=== PATIENT | female | born 1960 | race Caucasian/White ===

== ENCOUNTER → 2016-06-30 | Outpatient (CLI) | payer BC ==
--- NOTE | 2016-07-03 09:15 | MM ---
Reason for exam: screening (asymptomatic). Last mammogram was performed 1 year ago. History: Patient is postmenopausal and is nulliparous. Physical Findings: A clinical breast exam by your physician is recommended on an annual basis and results should be correlated with mammographic findings. MG Screening Mammo w CAD Bilateral CC and MLO view(s) were taken. Prior study comparison: June 16, 2015, bilateral MG screening mammo w CAD. October 15, 2013, bilateral digital screening mammo w/CAD. There are scattered fibroglandular densities. Benign calcifications. Right retroareolar nodular density. This finding is changed when compared with previous exams. ASSESSMENT: Incomplete: need additional imaging evaluation, BI-RAD 0 RECOMMENDATION: Special view mammogram and ultrasound of the right breast. [facility] will attempt to contact patient to return for supplemental views and ultrasound.
== END | disposition home or self-care (01) ==
LOC: RADMAMWWP 15:21
PROVIDERS: ATTEND Obstetrics & Gynecology
DX: Z12.31 Encounter for screening mammogram for malignant neoplasm of breast (principal); R92.2 Inconclusive mammogram

== ENCOUNTER → 2016-07-14 | Outpatient (CLI) | payer BC ==
--- NOTE | 2016-07-17 07:25 | MM ---
Reason for exam: additional evaluation requested from abnormal screening. Last mammogram was performed less than 1 month ago. History: Patient is postmenopausal and is nulliparous. Physical Findings: Nurse did not find any significant physical abnormalities on exam. MG Work Up Mamm w CAD RT LM, spot compression CC, and spot compression MLO view(s) were taken of the right breast. Prior study comparison: June 30, 2016, bilateral MG screening mammo w CAD. June 16, 2015, bilateral MG screening mammo w CAD. Density improves. Ultrasound is recommended. These results were verbally communicated with the patient and result sheet given to the patient on 07/14/16. ASSESSMENT: Incomplete: need additional imaging evaluation, BI-RAD 0 RECOMMENDATION: Ultrasound of the right breast.
--- NOTE | 2016-07-17 07:25 | USB ---
Reason for exam: additional evaluation requested from abnormal screening. History: Patient is postmenopausal and is nulliparous. US Breast Workup Limited RT Right breast ultrasound demonstrates ducts visible at posterior nipple. These results were verbally communicated with the patient and result sheet given to the patient on 07/14/16. ASSESSMENT: Benign, BI-RAD 2 RECOMMENDATION: Return to routine screening mammogram schedule for both breasts.
== END | disposition home or self-care (01) ==
LOC: RADMAMWWP 15:00
PROVIDERS: ATTEND Obstetrics & Gynecology
DX: R92.8 Other abnormal and inconclusive findings on diagnostic imaging of breast (principal)
CPT/HCPCS: 76642; G0206

== ENCOUNTER → 2016-09-18 | Outpatient (CLI) | payer BC ==
[2016-09-18 09:22] LABS: ALT 31 U/L (9-52); AST 16 U/L (14-36); Alkaline Phosphatase 105 U/L (38-126); Anion Gap 9 mmol/L; Blood Urea Nitrogen 16 mg/dL (7-17); Calcium 9.2 mg/dL (8.4-10.2); Carbon Dioxide 28 mmol/L (22-30); Chloride 103 mmol/L (98-107); Cholesterol 180 mg/dL (<200); Glucose 189 mg/dL (74-99); HDL Cholesterol 74 mg/dL (40-60); Non-African American GFR(MDRD) >60 (>60 ml/min/1.73 sqM); Potassium 4.7 mmol/L (3.5-5.1); Sodium 140 mmol/L (137-145); Total Bilirubin 0.7 mg/dL (0.2-1.3); Total Protein 6.5 g/dL (6.3-8.2); Triglycerides 66 mg/dL (<150)
== END | disposition home or self-care (01) ==
LOC: LABWHC1 08:23
PROVIDERS: ATTEND Internal Medicine Endocrinology, Diabetes & Metabolism
DX: E10.65 Type 1 diabetes mellitus with hyperglycemia (principal); E55.9 Vitamin D deficiency, unspecified
CPT/HCPCS: 36415; 80053; 80061; 82043; 82306; 84443

== ENCOUNTER 2017-04-06 07:50 | Emergency (ER) | payer BC, OTHER ==
[2017-04-06 07:57] VITALS: TEMP 97.7
[2017-04-06] MEDS ORDERED: SODIUM CHLORIDE 0.9% 1,000 ML IV STA (08:27)
--- NOTE | 2017-04-06 08:34 | ED ---
General Adult HPI - General Chief complaint: Fall Stated complaint: fall ihs Time Seen by Provider: 04/06/17 08:14 Source: patient, RN notes reviewed Mode of arrival: wheelchair Limitations: no limitations - History of Present Illness Initial comments: Patient is a 56-year-old female who presents emergency room today with a chief complaint of falling at work approximately 2 hours ago. She does admit that she 's had falls like this over the last 6 months. She states this is approximately the sixth all. She states she does not get dizzy or lightheaded. She states she was just walking and she fell forward. She remembers the fall. Members getting up. Patient does admit to headache to the back of her head. She states she does not believe she hit her head. She does admit that with these falls that she's had off-and-on over the last 6 months she has experienced headaches at times. Patient also admits that yesterday at work she felt like she lost time. She states that she was working and before she knew it was much later in the day that when she realized. Patient denies any other complaints or symptoms. Patient denies any recent fever, chills, shortness of breath, chest pain, back pain, abdominal pain, nausea or vomiting, numbness or tingling, dysuria or hematuria, constipation or diarrhea, visual changes, or any other complaints. - Related Data Home Medications Medication Instructions Recorded Confirmed Cholecalciferol [Vitamin D3] 1,000 unit PO MO 04/06/17 04/06/17 INSULIN LISPRO (For Pump) [humaLOG See Protocol SQ-PUMP CONTINUOUS 04/06/17 (For Pump)] Allergies Allergy/AdvReac Type Severity Reaction Status Date / Time amoxicillin Allergy Rash/Hives Verified 04/06/17 08:29 Sulfa (Sulfonamide Allergy Rash/Hives Verified 04/06/17 08:29 Antibiotics) Review of Systems ROS Statement: Those systems with pertinent positive or pertinent negative responses have been documented in the HPI. ROS Other: All systems not noted in ROS Statement are negative. Past Medical History Past Medical History: Diabetes Mellitus History of Any Multi-Drug Resistant Organisms: MRSA Date of last positivie culture/infection: unknown MDRO Source:: leg thigh Past Surgical History: Appendectomy Past Psychological History: Depression Smoking Status: Never smoker Past Alcohol Use History: Occasional Past Drug Use History: None Reported General Exam - General Exam Comments Initial Comments: General: The patient is awake and alert, in no distress, and does not appear acutely ill. Eye: Pupils are equal, round and reactive to light, extra-ocular movements are intact. No nystagmus. There is normal conjunctiva bilaterally. No signs of icterus. Ears, nose, mouth and throat: There are moist mucous membranes and no oral lesions. Neck: The neck is supple, there is no tenderness or JVD. Cardiovascular: There is a regular rate and rhythm. No murmur, rub or gallop is appreciated. Respiratory: Lungs are clear to auscultation, respirations are non-labored, breath sounds are equal. No wheezes, stridor, rales, or rhonchi. Gastrointestinal: Soft, non-distended, non-tender abdomen without masses or organomegaly noted. There is no rebound or guarding present. No CVA tenderness. Bowel sounds are unremarkable. Musculoskeletal: Normal ROM, no tenderness. Strength 5/5. Sensation intact. Pulses equal bilaterally 2+. Neurological: A&O x 3. CN II-XII intact, There are no obvious motor or sensory deficits. Coordination appears grossly intact. Speech is normal. Skin: Skin is warm and dry and no rashes or lesions are noted. Psychiatric: Cooperative, appropriate mood & affect, normal judgment. Limitations: no limitations Course Vital Signs 04/06/17 04/06/17 04/06/17 07:52 08:46 08:50 Temperature 97.7 F Pulse Rate 62 58 L Pulse Rate [ 50 L Sitting] Pulse Rate [ 56 L Standing] Pulse Rate [ 57 L Supine] Respiratory 16 18 Rate Blood Pressure 172/68 158/63 Blood Pressure 165/68 [Sitting] Blood Pressure 153/63 [Standing] Blood Pressure 140/64 [Supine] O2 Sat by Pulse 99 Oximetry 04/06/17 09:55 Temperature Pulse Rate 48 L Pulse Rate [ Sitting] Pulse Rate [ Standing] Pulse Rate [ Supine] Respiratory 18 Rate Blood Pressure 126/56 Blood Pressure [Sitting] Blood Pressure [Standing] Blood Pressure [Supine] O2 Sat by Pulse Oximetry Medical Decision Making - Medical Decision Making Patient labs been reviewed are unremarkable. Patient isn't medicated emergency room. Her EKG shows sinus bradycardia. Case was discussed and seen by attending physician who did discuss case with patient's PCP. He recommends the patient may be discharged home to follow-up with him for Holter monitor. Patient is aware this plan states understanding and is in agreement. - Lab Data Result diagrams: 04/06/17 08:40 04/06/17 08:40 Lab Results 04/06/17 04/06/17 04/06/17 Range/Units 08:34 08:40 08:40 WBC 7.2 (3.8-10.6) k/uL RBC 4.40 (3.80-5.40) m/uL Hgb 12.8 (11.4-16.0) gm/dL Hct 38.8 (34.0-46.0) % MCV 88.2 (80.0-100.0) fL MCH 29.1 (25.0-35.0) pg MCHC 33.0 (31.0-37.0) g/dL RDW 14.0 (11.5-15.5) % Plt Count 185 (150-450) k/uL Neutrophils % 76 % Lymphocytes % 17 % Monocytes % 5 % Eosinophils % 1 % Basophils % 1 % Neutrophils # 5.5 (1.3-7.7) k/uL Lymphocytes # 1.2 (1.0-4.8) k/uL Monocytes # 0.3 (0-1.0) k/uL Eosinophils # 0.0 (0-0.7) k/uL Basophils # 0.0 (0-0.2) k/uL PT (9.0-12.0) sec INR (<1.2) APTT (22.0-30.0) sec Sodium (137-145) mmol/L Potassium (3.5-5.1) mmol/L Chloride (98-107) mmol/L Carbon Dioxide (22-30) mmol/L Anion Gap mmol/L BUN (7-17) mg/dL Creatinine (0.52-1.04) mg/dL Est GFR (MDRD) Af Amer (>60 ml/min/1.73 sqM) Est GFR (MDRD) Non-Af (>60 ml/min/1.73 sqM) Glucose (74-99) mg/dL POC Glucose (mg/dL) 198 H (75-99) mg/dL POC Glu Drafter Marine ID Kegler, Gina Calcium (8.4-10.2) mg/dL Total Bilirubin (0.2-1.3) mg/dL AST (14-36) U/L ALT (9-52) U/L Alkaline Phosphatase (38-126) U/L Total Creatine Kinase 73 (30-135) U/L CK-MB (CK-2) 1.0 (0.0-2.4) ng/mL CK-MB (CK-2) Rel Index 1.4 Troponin I <0.012 (0.000-0.034) ng/mL Total Protein (6.3-8.2) g/dL Albumin (3.5-5.0) g/dL Urine Color Urine Appearance (Clear) Urine pH (5.0-8.0) Ur Specific Pickrell (1.001-1.035) Urine Protein (Negative) Urine Glucose (UA) (Negative) Urine Blood (Negative) Urine Nitrite (Negative) Urine Bilirubin (Negative) Urine Urobilinogen (<2.0) mg/dL Ur Leukocyte Esterase (Negative) Urine WBC (0-5) /hpf Ur Squamous Epith Cells (0-4) /hpf Urine Bacteria (None) /hpf Urine Mucus (None) /hpf 04/06/17 04/06/17 04/06/17 Range/Units 08:40 08:40 10:20 WBC (3.8-10.6) k/uL RBC (3.80-5.40) m/uL Hgb (11.4-16.0) gm/dL Hct (34.0-46.0) % MCV (80.0-100.0) fL MCH (25.0-35.0) pg MCHC (31.0-37.0) g/dL RDW (11.5-15.5) % Plt Count (150-450) k/uL Neutrophils % % Lymphocytes % % Monocytes % % Eosinophils % % Basophils % % Neutrophils # (1.3-7.7) k/uL Lymphocytes # (1.0-4.8) k/uL Monocytes # (0-1.0) k/uL Eosinophils # (0-0.7) k/uL Basophils # (0-0.2) k/uL PT 9.6 (9.0-12.0) sec INR 0.9 (<1.2) APTT 20.8 L (22.0-30.0) sec Sodium 138 (137-145) mmol/L Potassium 4.7 (3.5-5.1) mmol/L Chloride 105 (98-107) mmol/L Carbon Dioxide 25 (22-30) mmol/L Anion Gap 8 mmol/L BUN 16 (7-17) mg/dL Creatinine 0.70 (0.52-1.04) mg/dL Est GFR (MDRD) Af Amer >60 (>60 ml/min/1.73 sqM) Est GFR (MDRD) Non-Af >60 (>60 ml/min/1.73 sqM) Glucose 221 H (74-99) mg/dL POC Glucose (mg/dL) (75-99) mg/dL POC Glu Drafter Marine ID Calcium 9.1 (8.4-10.2) mg/dL Total Bilirubin 0.5 (0.2-1.3) mg/dL AST 18 (14-36) U/L ALT 32 (9-52) U/L Alkaline Phosphatase 99 (38-126) U/L Total Creatine Kinase (30-135) U/L CK-MB (CK-2) (0.0-2.4) ng/mL CK-MB (CK-2) Rel Index Troponin I (0.000-0.034) ng/mL Total Protein 6.2 L (6.3-8.2) g/dL Albumin 3.5 (3.5-5.0) g/dL Urine Color Yellow Urine Appearance Cloudy H (Clear) Urine pH 5.5 (5.0-8.0) Ur Specific Pickrell 1.016 (1.001-1.035) Urine Protein Negative (Negative) Urine Glucose (UA) 4+ H (Negative) Urine Blood Negative (Negative) Urine Nitrite Negative (Negative) Urine Bilirubin Negative (Negative) Urine Urobilinogen <2.0 (<2.0) mg/dL Ur Leukocyte Esterase Small H (Negative) Urine WBC 3 (0-5) /hpf Ur Squamous Epith Cells 8 H (0-4) /hpf Urine Bacteria Occasional H (None) /hpf Urine Mucus Rare H (None) /hpf Disposition Clinical Impression: Fall Disposition: HOME SELF-CARE Condition: Good Instructions: Lightheadedness (ED) Additional Instructions: Please follow-up with Dr. Merida for Holter monitor. Please return to emergency room if the symptoms increase or worsen or for any other concerns. Referrals: Dixon Merida MD [Primary Care Provider] - 1-2 days Time of Disposition: 10:50
[2017-04-06 08:51] LABS: Glucose,Whole Blood 198 mg/dL (75-99)
[2017-04-06 08:58] VITALS: RESP 18
[2017-04-06 09:00] LABS: Basophils % (A) 1 %; CH 29.2; CHCM 33.2; Eosinophils % (A) 1 %; HCT 38.8 % (34.0-46.0); HDW 2.36; HGB 12.8 gm/dL (11.4-16.0); Luc # (Auto) 0.05; Luc % (Auto) 1; Lymphocytes # (A) 1.2 k/uL (1.0-4.8); Lymphocytes % (A) 17 %; MCH 29.1 pg (25.0-35.0); MCV 88.2 fL (80.0-100.0); Mean Platelet Volume 9.3; Monocytes # (A) 0.3 k/uL (0-1.0); Monocytes % (A) 5 %; Neutrophils # (A) 5.5 k/uL (1.3-7.7); Neutrophils % (A) 76 %; WBC 7.2 k/uL (3.8-10.6); WBC (Perox) 7.12
[2017-04-06 09:07] LABS: INR 0.9 (<1.2); Partial Thromboplastin Time 20.8 sec (22.0-30.0); Prothrombin Time 9.6 sec (9.0-12.0)
[2017-04-06 09:10] LABS: ALT 32 U/L (9-52); AST 18 U/L (14-36); Alkaline Phosphatase 99 U/L (38-126); Anion Gap 8 mmol/L; Blood Urea Nitrogen 16 mg/dL (7-17); Calcium 9.1 mg/dL (8.4-10.2); Carbon Dioxide 25 mmol/L (22-30); Chloride 105 mmol/L (98-107); Glucose 221 mg/dL (74-99); Non-African American GFR(MDRD) >60 (>60 ml/min/1.73 sqM); Potassium 4.7 mmol/L (3.5-5.1); Sodium 138 mmol/L (137-145); Total Bilirubin 0.5 mg/dL (0.2-1.3); Total Protein 6.2 g/dL (6.3-8.2)
--- NOTE | 2017-04-06 09:26 | CT ---
EXAMINATION TYPE: CT brain wo con DATE OF EXAM: 04/06/2017 COMPARISON: NONE HISTORY: 56-year-old female fall/ posterior head pain TECHNIQUE: Examination was done in axial plane without intravenous contrast. Coronal and sagittal r econstructions performed. CT DLP: 1029.90 mGycm Automated exposure control for dose reduction was used. FINDINGS: There is no evidence of acute intracranial hemorrhage, acute ischemic changes, mass, mass-effect, or extra-axial fluid collection. There is no effacement of cerebral sulci or basal subarachnoid cister ns. There is no hydrocephalus. There is no midline shift. Craven-white matter distinction is preserv ed. No calvarial fracture. Slightly divergent gaze suggests underlying strabismus. Paranasal sinuses and mastoid air cells well pneumatized. IMPRESSION: No acute intracranial abnormality seen.
[2017-04-06 09:32] LABS: Creatine Kinase 73 U/L (30-135)
[2017-04-06 09:45] LABS: Troponin I <0.012 ng/mL (0.000-0.034)
[2017-04-06 10:47] LABS: Appearance,Urine Cloudy (Clear); Bacteria,Urine Occasional /hpf; Bilirubin,Urine Negative (Negative); Glucose,Urine (UA) 4+ (Negative); Leukocyte Esterase,Urine Small (Negative); Mucus,Urine Rare /hpf; Nitrite,Urine Negative (Negative); PH, Urine 5.5 (5.0-8.0); Particle Count 4053; Protein,Urine Negative (Negative); Specific Gravity,Urine 1.016 (1.001-1.035); Squamous Epithelial Cell,Urine 8 /hpf (0-4); UA Billing (MACRO vs. MICRO) MICRO; Urobilinogen,Urine <2.0 mg/dL (<2.0); WBC,Urine 3 /hpf (0-5)
[2017-04-06 11:04] LABS: Ketones,Urine 2+ (Negative)
[2017-04-06 11:13] VITALS: BP 134/61; PULSE 52
== END 2017-04-06 11:14 | disposition home or self-care (01) ==
LOC: EC 07:50
DX: R51 Headache (principal); R00.1 Bradycardia, unspecified; E11.9 Type 2 diabetes mellitus without complications; Z88.0 Allergy status to penicillin; Z88.2 Allergy status to sulfonamides; Z79.4 Long term (current) use of insulin; Z79.899 Other long term (current) drug therapy; W18.39XA Other fall on same level, initial encounter; Y93.01 Activity, walking, marching and hiking; Y99.0 Civilian activity done for income or pay; Y92.69 Other specified industrial and construction area as the place of occurrence of the external cause
CPT/HCPCS: 36415; 70450; 80053; 81001; 82550; 82553; 84484; 85025; 85610; 85730; 93005; 96360; 99284

== ENCOUNTER → 2017-10-06 | Outpatient (CLI) | payer BC ==
[2017-10-06 10:30] LABS: ALT 29 U/L (9-52); AST 18 U/L (14-36); Albumin 3.5 g/dL (3.5-5.0); Alkaline Phosphatase 103 U/L (38-126); Anion Gap 10 mmol/L; Blood Urea Nitrogen 12 mg/dL (7-17); Calcium 9.2 mg/dL (8.4-10.2); Carbon Dioxide 29 mmol/L (22-30); Chloride 103 mmol/L (98-107); Cholesterol 163 mg/dL (<200); Glucose 121 mg/dL (74-99); HDL Cholesterol 78 mg/dL (40-60); LDL Cholesterol,Calculated 72 mg/dL (0-99); Potassium 4.6 mmol/L (3.5-5.1); Sodium 142 mmol/L (137-145); Total Bilirubin 0.6 mg/dL (0.2-1.3); Total Protein 6.1 g/dL (6.3-8.2); Triglycerides 63 mg/dL (<150)
[2017-10-06 17:08] LABS: Vitamin D 25 Hydroxy 24.5 ng/mL (30.0-100.0)
[2017-10-06 20:39] LABS: Hemoglobin A1C 7.6 % (4.0-6.0)
== END | disposition home or self-care (01) ==
LOC: LABWHC1 09:30
PROVIDERS: ATTEND Internal Medicine Endocrinology, Diabetes & Metabolism
DX: E55.9 Vitamin D deficiency, unspecified (principal); E10.40 Type 1 diabetes mellitus with diabetic neuropathy, unspecified; E10.65 Type 1 diabetes mellitus with hyperglycemia
CPT/HCPCS: 36415; 80053; 80061; 82043; 82306; 82570; 82607; 83036; 84443

== ENCOUNTER → 2017-11-12 | Outpatient (CLI) | payer BC ==
--- NOTE | 2017-11-12 17:05 | BD ---
EXAMINATION TYPE: Axial Bone Density DATE OF EXAM: 11/12/2017 COMPARISON: NONE CLINICAL HISTORY: 55-year-old female post menopausal screening, R92.8 Height: 5'3 Weight: 209 FRAX RISK QUESTIONS: History of Fracture in Adulthood: y Secondary Osteoporosis: 1. Type 1 Diabetes: y RISK FACTORS HISTORY OF: History of Wrist Fracture: rt When: 2014 Diet low in dairy products/other sources of calcium: y Postmenopausal woman: y Frequent falls: y MEDICATIONS: Additional Medications: insulin, Additional History: EXAM MEASUREMENTS: Bone mineral densitometry was performed using the [employer] System. Bone mineral density as measured about the Lumbar spine is: ----- L1-L4(G/cm2): 1.170 T Score Values are as follows: ----- L2: -0.4 ----- L3: -0.5 ----- L4: 0.0 ----- L1-L4:-0.1 Bone mineral density about the R hip (g/cm2): 0.889 Bone mineral density about the L hip (g/cm2): 0.874 T Score values are as follows: -----R Neck: -1.1 -----L Neck: -1.2 -----R Total: -0.4 -----L Total: 0.0 IMPRESSION: Osteopenia (T Score between -2.5 and -1). There is slightly increased risk of fracture and the patient may be considered for treatment. Re-Screen 2-5 years. NOTE: T-SCORE=SD OF THE YOUNG ADULT MEAN.
--- NOTE | 2017-11-14 10:25 | MM ---
Reason for exam: screening (asymptomatic). Last mammogram was performed 1 year and 4 months ago. History: Patient is postmenopausal and is nulliparous. Physical Findings: A clinical breast exam by your physician is recommended on an annual basis and results should be correlated with mammographic findings. MG Screening Mammo w CAD Bilateral CC and MLO view(s) were taken. Prior study comparison: July 14, 2016, right breast MG work up mamm w CAD RT. June 30, 2016, bilateral MG screening mammo w CAD. There are scattered fibroglandular densities. No significant changes when compared with prior studies. ASSESSMENT: Benign, BI-RAD 2 RECOMMENDATION: Routine screening mammogram of both breasts in 1 year.
== END | disposition home or self-care (01) ==
LOC: RADMAMWWP 15:13
PROVIDERS: ATTEND Family Medicine
DX: Z12.31 Encounter for screening mammogram for malignant neoplasm of breast (principal); M85.80 Other specified disorders of bone density and structure, unspecified site; Z78.0 Asymptomatic menopausal state
CPT/HCPCS: 77067; 77080

== ENCOUNTER → 2018-02-08 | Day surgery (SDC) | payer BC ==
[2018-02-04 10:46] VITALS: BMI 38.0
--- NOTE | 2018-02-07 13:00 | HP ---
HISTORY AND PHYSICAL CHIEF COMPLAINT: Left knee pain. 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 She notes medial pain and giving way. She has tried previous injections with minimal relief. She notes pain that bothers her daily. She has been taking anti-inflammatories as well. PAST MEDICAL HISTORY: Significant for reflux disease along with insulin-dependent diabetes, vitamin D deficiency. PAST SURGICAL HISTORY: Significant for appendectomy. CURRENT MEDICATIONS: 1. NovoLog. 2. Omeprazole. 3. Vitamin D. ALLERGIES: She has allergies to SULFA and AMOXICILLIN. FAMILY HISTORY: Noncontributory. SOCIAL HISTORY: Negative for current tobacco or alcohol use. REVIEW OF SYSTEMS: Sixteen point review of systems otherwise reviewed and is noncontributory. PHYSICAL EXAMINATION: On examination, the patient is approximately 5 feet, 3 inches, 215 pounds of endomorphic habitus. HEENT exam is nonfocal. Neck is supple. She has painless passive motion of her left hip. Straight leg raise is negative. Active motion left knee -6 to 105 degrees of flexion. She has a mild effusion. She is tender about the medial joint line. Collaterals are stable, Kunal's negative, Jazmin's elicits medial pain. Her distal neurovascular exam appears intact in the left lower extremity. MRI report left knee shows degenerative changes involving all 3 compartments in addition to questionable old MCL and PCL sprain. IMPRESSION: 1. Left knee internal derangement with possible medial femoral condyle chondral injury. 2. Insulin-dependent diabetes. 3. Left knee moderate medial and patellofemoral compartment osteoarthrosis. 4. Increased body mass index. RECOMMENDATIONS: I talked to the patient at length regarding her condition and treatment options. At this point, she is having significant pain and mechanical symptoms in her left knee despite conservative measures. After thorough discussion, she opts to proceed with surgery. We will plan to proceed with arthroscopic evaluation with possible medial femoral chondrectomy. Risks and benefits were discussed at length in layman's terms. We will likely perform that as an outpatient procedure. MMODL / IJN: [id number] /
[~2018-02-08] MED LIST: EPINEPHrine (PF) 1 ML in SODIUM CHLORIDE 0.9% IRRIGATIO 3,000 ML IRRIGATION ONE; HYDROcodone/APAP 7.5-325MG 1 EACH TAB PO ONE; KETOROLAC 30 MG/ML 1 ML VIAL ONE; LACTATED RINGERS 1,000 ML IV ONE; LACTATED RINGERS 1,000 ML IV SCH; LIDOCAINE 1% 20 ML VIAL (10MG/ML) FOR IV START INTRADERMA PRN; LIDOCAINE 1% INJ 10MG/ML (20 ML MDV) ONE; MIDAZOLAM 2 MG/2 ML VIAL ONE; ONDANSETRON 4 MG/2 ML VIAL IVP ONE; PROPOFOL 10 MG/ML 20 ML VIAL IV ONE; SUCCINYLCHOLINE CHLORIDE 100 MG/5 ML SYR IV ONE; ceFAZolin IN SWFI 2 GM/20 ML SYRINGE IVP ONE; diphenhydrAMINE 50 MG/ML 1 ML VIAL ONE; fentaNYL (PF) 50 MCG/ML 2 ML AMP IVP ONE; fentaNYL (PF) 50 MCG/ML 2 ML AMP ONE
[2018-02-08 07:16] LABS: Glucose,Whole Blood 134 mg/dL (75-99)
[2018-02-08] MEDS: HYDROmorphone 0.5 MG/0.5 ML SYRINGE IVP PRN ×4 (08:56→09:29)
--- NOTE | 2018-02-08 08:59 | P.OP ---
Date of Procedure: 02/08/18 Preoperative Diagnosis: Left knee internal derangement Postoperative Diagnosis: Left knee posterior medial meniscal tear/chondrocalcinosis with reactive synovitis/grade 2 chondral injury distal medial femoral condyle/grade 2 chondral injury distal lateral femoral condyle Procedure(s) Performed: Left knee arthroscopic partial medial meniscectomy/medial femoral chondrectomy/ lateral femoral chondrectomy/partial synovectomy of the medial, lateral, and patellofemoral compartments Anesthesia: GETA Surgeon: Aman Fishman Estimated Blood Loss (ml): 10 Pathology: none sent Condition: stable Disposition: PACU Indications for Procedure: The patient's a 57-year-old female who presents with progressive left knee pain and mechanical symptoms despite conservative treatment. A discussion of the risks and benefits of operative intervention versus continued conservative measures was made with patient. She opted to proceed. Operative risks to include infection, neurovascular injury, development of blood clots, possible incomplete resolution of symptoms, possible worsening symptoms and need for subsequent procedures was discussed. Informed consent was obtained. Operative Findings: As below Description of Procedure: The patient was brought to the operating room, and after induction of general anesthesia I examined the left knee. Collaterals were stable, Kunal was negative, and posterior drawer was negative. The left lower extremity was prepped and draped in normal fashion. A superior lateral portal was made through a 3 mm skin incision superior and lateral to the patella. This was used for outflow. A lateral portals made through a 5 mm vertical skin incision lateral to the patella tendon above the joint. Diagnostic arthroscopy was performed. A medial portals made through a similar incision medial to the patella tendon above the joint. On inspection of the medial compartment, she had significant reactive synovitis along with chondrocalcinosis the medial meniscus. An oblique tear involving the posterior most aspect of the medial meniscus in the white-red junction was noted. This was debrided back to stable base with straight baskets and a motorized shaver. The synovitis was debrided with motorized shaver. A grade 2 chondral injury involving the posterior aspect the distal medial femoral condyle was noted. There was a loose chondral fragment. This was debrided back to stable base with motorized shaver. On inspection of the notch the anterior cruciate ligament appeared to be intact. On inspection lateral compartment again there was reactive some advice that was debrided with motorized shaver. A grade 2 chondral injury involving the distal lateral aspect of the lateral femoral condyle was noted with a loose chondral fragment. This was debrided back to a stable base motorized shaver. The lateral meniscus was stable and intact. On inspection of the patellofemoral articulation, again there was reactive synovitis debrided with motorized shaver. Chondral fibrillation however no loose chondral fragments. The gutters were clear of debris. The knee was then thoroughly irrigated. The portals were closed with Steri-Strips. A sterile dressing was applied in addition to a compression stocking. The patient was awoken from general anesthesia and transferred to the recovery room in good condition. Blood loss was estimated at 10 mL. No crepitation were incurred.
[2018-02-08] MEDS: MIDAZOLAM 2 MG/2 ML VIAL IVP ONE ×2 (09:03→09:10)
[2018-02-08 09:07] VITALS: TEMP 97.8
[2018-02-08 09:56] LABS: Glucose,Whole Blood 128 mg/dL (75-99)
[2018-02-08 10:00] VITALS: RESP 16
[2018-02-08 10:48] VITALS: BP 126/55; PULSE 62
== END | disposition home or self-care (01) ==
LOC: OR 06:30
PROVIDERS: ATTEND Orthopaedic Surgery
DX: S83.242A Other tear of medial meniscus, current injury, left knee, initial encounter (principal); S83.32XA Tear of articular cartilage of left knee, current, initial encounter; X58.XXXA Exposure to other specified factors, initial encounter; M11.262 Other chondrocalcinosis, left knee; M65.862 Other synovitis and tenosynovitis, left lower leg; K21.9 Gastro-esophageal reflux disease without esophagitis; E11.9 Type 2 diabetes mellitus without complications; Z79.4 Long term (current) use of insulin; E55.9 Vitamin D deficiency, unspecified; Z79.899 Other long term (current) drug therapy; Z88.0 Allergy status to penicillin; Z88.2 Allergy status to sulfonamides
CPT/HCPCS: 29881; J2250; J1200; J2405; J0171; J2001; J3010; J1885; J0330; J2704; J1170; J0690

== ENCOUNTER → 2018-02-18 | Outpatient (CLI) | payer BC ==
--- NOTE | 2018-02-18 08:20 | US ---
EXAMINATION TYPE: US abdomen complete DATE OF EXAM: 02/18/2018 COMPARISON: NONE CLINICAL HISTORY: Atypical chest pain R07.89. Chest pain. R/O GB abnormality. EXAM MEASUREMENTS: Liver Length: 14.6 cm Gallbladder Wall: 0.2 cm CBD: 0.6 cm CHD: 0.6 cm Spleen: 10.8 cm Right Kidney: 11.6 x 5.0 x 4.5 cm Left Kidney: 11.2 x 4.5 x 4.2 cm Pancreas: Head and tail not well visualized due to overlying bowel gas Liver: wnl Gallbladder: wnl Evidence for sonographic Spangler's sign: neg CBD: wnl CHD: wnl Spleen: wnl Right Kidney: wnl Left Kidney: wnl Upper IVC: wnl Abd Aorta: Prox and mid portion obscured by overlying bowel gas The liver is homogenous. The intrahepatic portion of the IVC and proximal abdominal aorta are within normal limits. There is no evidence of cholelithiasis. Common bile duct is unremarkable. The visu alized portions of the pancreas are homogenous. The spleen is unremarkable. Kidneys are symmetric a nd free of hydronephrosis. No renal lesions are seen. IMPRESSION: 1. No distinct abnormality seen.
== END | disposition home or self-care (01) ==
LOC: RADUSWWP 07:32
DX: R07.89 Other chest pain (principal)
CPT/HCPCS: 76700

== ENCOUNTER 2018-09-09 04:44 | Emergency (ER) | payer BC ==
[2018-09-09 04:54] VITALS: TEMP 98.4
[2018-09-09 05:00] LABS: Glucose,Whole Blood 188 mg/dL (75-99)
[2018-09-09 05:56] LABS: Glucose,Whole Blood 192 mg/dL (75-99)
[2018-09-09 06:02] LABS: Basophils # (A) 0.1 k/uL (0-0.2); Basophils % (A) 1 %; Eosinophils # (A) 0.1 k/uL (0-0.7); Eosinophils % (A) 2 %; HCT 41.1 % (34.0-46.0); HGB 13.3 gm/dL (11.4-16.0); Lymphocytes # (A) 1.3 k/uL (1.0-4.8); Lymphocytes % (A) 20 %; MCH 27.1 pg (25.0-35.0); MCHC 32.3 g/dL (31.0-37.0); MCV 83.9 fL (80.0-100.0); Mean Platelet Volume 9.3; Monocytes # (A) 0.3 k/uL (0-1.0); Monocytes % (A) 5 %; Neutrophils # (A) 4.6 k/uL (1.3-7.7); Neutrophils % (A) 72 %; Platelet Count 180 k/uL (150-450); RDW 13.9 % (11.5-15.5); WBC 6.4 k/uL (3.8-10.6)
[2018-09-09] MEDS ORDERED: ACETAMINOPHEN TAB 325 MG TAB PO STA (06:08)
[2018-09-09] MEDS ORDERED: IBUPROFEN 600 MG TAB PO STA (06:08)
[2018-09-09 06:10] LABS: Anion Gap 5 mmol/L; Blood Urea Nitrogen 16 mg/dL (7-17); Calcium 9.1 mg/dL (8.4-10.2); Carbon Dioxide 29 mmol/L (22-30); Chloride 104 mmol/L (98-107); Glucose 190 mg/dL (74-99); Potassium 4.9 mmol/L (3.5-5.1); Sodium 138 mmol/L (137-145)
--- NOTE | 2018-09-09 06:12 | ED ---
General Adult HPI - General Chief complaint: Recheck/Abnormal Lab/Rx Stated complaint: Hypoglycemia Time Seen by Provider: 09/09/18 06:03 Source: EMS Mode of arrival: EMS Limitations: no limitations - History of Present Illness Initial comments: This patient's 57-year-old woman with history of diabetes brought by ambulance for suspected hypoglycemia. Patient reports that her dog had awakened her this morning and she was going to let the dog out. She found that she was having hard time getting up. She also was feeling somewhat clammy. Family called EMS and her blood sugar was found to be in the 50s. EMS administered dextrose and the patient did begin to feel better rapidly. When I interview the patient, she is feeling well but states that her right bicep areas a little bit sore. She does not recall having injury. There is no bony tenderness or deformity there per the patient. Onset/Timin -: hour(s) Location: right, upper extremity Radiation: non-radiation Severity scale (1-10): 3 Quality: dull Consistency: constant Improves with: none Worsens with: none - Related Data Home Medications Medication Instructions Recorded Confirmed Cholecalciferol [Vitamin D3] 1,000 unit PO MO 04/06/17 02/08/18 INSULIN LISPRO (For Pump) [humaLOG See Protocol SQ-PUMP CONTINUOUS 04/06/17 02/08/18 (For Pump)] Previous Rx's Medication Instructions Recorded HYDROcodone/APAP 7.5-325MG [[place] 1 tab PO Q4H PRN 5 Days #30 tab 02/08/18 7.5-325] Allergies Allergy/AdvReac Type Severity Reaction Status Date / Time amoxicillin Allergy Rash/Hives Verified 02/08/18 06:57 Sulfa (Sulfonamide Allergy Rash/Hives Verified 02/08/18 06:57 Antibiotics) Review of Systems ROS Statement: Those systems with pertinent positive or pertinent negative responses have been documented in the HPI. ROS Other: All systems not noted in ROS Statement are negative. Constitutional: Reports: weakness. Denies: fever, chills Respiratory: Denies: cough, dyspnea Cardiovascular: Denies: chest pain, syncope Gastrointestinal: Denies: abdominal pain, vomiting, diarrhea Genitourinary: Denies: dysuria Musculoskeletal: Reports: as per HPI, myalgia Skin: Denies: rash Neurological: Denies: headache, weakness, numbness Past Medical History Past Medical History: Diabetes Mellitus, GERD/Reflux History of Any Multi-Drug Resistant Organisms: MRSA Date of last positivie culture/infection: unknown MDRO Source:: left thigh Past Surgical History: Appendectomy Past Anesthesia/Blood Transfusion Reactions: No Reported Reaction Past Psychological History: Depression Smoking Status: Never smoker - Past Family History Mother Family Medical History: No Reported History General Exam Limitations: no limitations General appearance: alert, in no apparent distress Head exam: Present: atraumatic, normocephalic Eye exam: Present: normal appearance. Absent: scleral icterus, conjunctival injection ENT exam: Present: normal oropharynx Respiratory exam: Present: normal lung sounds bilaterally. Absent: respiratory distress, wheezes, rales, rhonchi, stridor Cardiovascular Exam: Present: regular rate, normal rhythm, normal heart sounds. Absent: systolic murmur, diastolic murmur, rubs, gallop GI/Abdominal exam: Present: soft. Absent: distended, tenderness, guarding, rebound, mass Extremities exam: Present: normal inspection, tenderness (I'll tenderness to palpation in the right bicep otherwise no findings there), normal capillary refill. Absent: pedal edema, calf tenderness Back exam: Present: normal inspection. Absent: CVA tenderness (R), CVA tenderness (L) Neurological exam: Present: alert, oriented X3, CN II-XII intact. Absent: motor sensory deficit Skin exam: Present: warm, dry, intact, normal color. Absent: rash Course Vital Signs 09/09/18 04:50 Temperature 98.4 F Pulse Rate 60 Respiratory 99 H Rate Blood Pressure 143/72 O2 Sat by Pulse 99 Oximetry Medical Decision Making - Lab Data Result diagrams: 09/09/18 05:50 09/09/18 05:50 Lab Results 09/09/18 09/09/18 09/09/18 Range/Units 04:58 05:50 05:50 WBC 6.4 (3.8-10.6) k/uL RBC 4.90 (3.80-5.40) m/uL Hgb 13.3 (11.4-16.0) gm/dL Hct 41.1 (34.0-46.0) % MCV 83.9 (80.0-100.0) fL MCH 27.1 (25.0-35.0) pg MCHC 32.3 (31.0-37.0) g/dL RDW 13.9 (11.5-15.5) % Plt Count 180 (150-450) k/uL Neutrophils % 72 % Lymphocytes % 20 % Monocytes % 5 % Eosinophils % 2 % Basophils % 1 % Neutrophils # 4.6 (1.3-7.7) k/uL Lymphocytes # 1.3 (1.0-4.8) k/uL Monocytes # 0.3 (0-1.0) k/uL Eosinophils # 0.1 (0-0.7) k/uL Basophils # 0.1 (0-0.2) k/uL Sodium 138 (137-145) mmol/L Potassium 4.9 (3.5-5.1) mmol/L Chloride 104 (98-107) mmol/L Carbon Dioxide 29 (22-30) mmol/L Anion Gap 5 mmol/L BUN 16 (7-17) mg/dL Creatinine 0.60 (0.52-1.04) mg/dL Est GFR (CKD-EPI)AfAm >90 (>60 ml/min/1.73 sqM) Est GFR (CKD-EPI)NonAf >90 (>60 ml/min/1.73 sqM) Glucose 190 H (74-99) mg/dL POC Glucose (mg/dL) 188 H (75-99) mg/dL POC Glu [employer] Gail Ruiz Calcium 9.1 (8.4-10.2) mg/dL 09/09/18 Range/Units 05:54 WBC (3.8-10.6) k/uL RBC (3.80-5.40) m/uL Hgb (11.4-16.0) gm/dL Hct (34.0-46.0) % MCV (80.0-100.0) fL MCH (25.0-35.0) pg MCHC (31.0-37.0) g/dL RDW (11.5-15.5) % Plt Count (150-450) k/uL Neutrophils % % Lymphocytes % % Monocytes % % Eosinophils % % Basophils % % Neutrophils # (1.3-7.7) k/uL Lymphocytes # (1.0-4.8) k/uL Monocytes # (0-1.0) k/uL Eosinophils # (0-0.7) k/uL Basophils # (0-0.2) k/uL Sodium (137-145) mmol/L Potassium (3.5-5.1) mmol/L Chloride (98-107) mmol/L Carbon Dioxide (22-30) mmol/L Anion Gap mmol/L BUN (7-17) mg/dL Creatinine (0.52-1.04) mg/dL Est GFR (CKD-EPI)AfAm (>60 ml/min/1.73 sqM) Est GFR (CKD-EPI)NonAf (>60 ml/min/1.73 sqM) Glucose (74-99) mg/dL POC Glucose (mg/dL) 192 H (75-99) mg/dL POC Glu [employer] ID Gail Ray Calcium (8.4-10.2) mg/dL Disposition Clinical Impression: Hypoglycemia Disposition: HOME SELF-CARE Condition: Good Instructions (If sedation given, give patient instructions): Hypoglycemia in a Person with Diabetes (ED) Is patient prescribed a controlled substance at d/c from ED?: No Referrals: Dixon Merida MD [Primary Care Provider] - 1-2 days
[2018-09-09 07:18] VITALS: BP 145/74; PULSE 87; RESP 18
== END 2018-09-09 07:02 | disposition home or self-care (01) ==
LOC: EC 04:44
DX: E11.649 Type 2 diabetes mellitus with hypoglycemia without coma (principal); M79.18 Myalgia, other site; Z86.14 Personal history of Methicillin resistant Staphylococcus aureus infection; Z79.4 Long term (current) use of insulin; Z88.0 Allergy status to penicillin; Z88.2 Allergy status to sulfonamides
CPT/HCPCS: 36415; 80048; 85025; 99284

== ENCOUNTER → 2019-01-02 | Outpatient (CLI) | payer BC ==
--- NOTE | 2019-01-06 08:36 | MM ---
Reason for exam: screening (asymptomatic). Last mammogram was performed 1 year and 2 months ago. History: Patient is postmenopausal and is nulliparous. Physical Findings: A clinical breast exam by your physician is recommended on an annual basis and results should be correlated with mammographic findings. MG Screening Mammo w CAD Bilateral CC and MLO view(s) were taken. Prior study comparison: November 12, 2017, bilateral MG screening mammo w CAD. July 14, 2016, right breast MG work up mamm w CAD RT. There are scattered fibroglandular densities. Focal asymmetry left upper MLO middle position, stable. No significant changes when compared with prior studies. ASSESSMENT: Benign, BI-RAD 2 RECOMMENDATION: Routine screening mammogram of both breasts in 1 year.
== END | disposition home or self-care (01) ==
LOC: RADMAMWWP 15:33
PROVIDERS: ATTEND Family Medicine
DX: Z12.31 Encounter for screening mammogram for malignant neoplasm of breast (principal)
CPT/HCPCS: 77067

== ENCOUNTER 2019-03-11 07:25 | Day surgery (SDC) | payer BC ==
[2019-03-07 10:49] VITALS: BMI 37.2
[~2019-03-11 07:25] MED LIST changes: -EPINEPHrine (PF) 1 ML in SODIUM CHLORIDE 0.9% IRRIGATIO 3,000 ML IRRIGATION ONE; -HYDROcodone/APAP 7.5-325MG 1 EACH TAB PO ONE; -KETOROLAC 30 MG/ML 1 ML VIAL ONE; -LACTATED RINGERS 1,000 ML IV ONE; -LIDOCAINE 1% INJ 10MG/ML (20 ML MDV) ONE; -MIDAZOLAM 2 MG/2 ML VIAL ONE; -ONDANSETRON 4 MG/2 ML VIAL IVP ONE; -PROPOFOL 10 MG/ML 20 ML VIAL IV ONE; -SUCCINYLCHOLINE CHLORIDE 100 MG/5 ML SYR IV ONE; -ceFAZolin IN SWFI 2 GM/20 ML SYRINGE IVP ONE; -diphenhydrAMINE 50 MG/ML 1 ML VIAL ONE; -fentaNYL (PF) 50 MCG/ML 2 ML AMP IVP ONE; -fentaNYL (PF) 50 MCG/ML 2 ML AMP ONE
[2019-03-11 08:14] VITALS: TEMP 98.4
[2019-03-11] MEDS ORDERED: PROPOFOL 10 MG/ML 20 ML VIAL IV ONE (08:27)
[2019-03-11] MEDS ORDERED: LIDOCAINE 1% INJ 10MG/ML (20 ML MDV) ONE (08:27)
[2019-03-11 08:32] LABS: Glucose,Whole Blood 115 mg/dL (75-99)
[2019-03-11 08:51] VITALS: PULSE 57
--- NOTE | 2019-03-11 08:51 | P.PCN ---
Date of Procedure: 03/11/19 Description of Procedure: BRIEF HISTORY: Patient is a 58-year-old, pleasant, female with a history of gastroesophageal reflux disease presenting for outpatient 3. Patient was started on omeprazole therapy with improvement of her symptoms but had still reported intermittent episodes of nighttime choking and coughing with reflux and burning in her esophagus. She had previously tried to stop PPI therapy with worsening symptoms. She also reports intermittent solid food dysphagia. Zantac was added at night with improvement in her symptoms however she still has some breakthrough symptoms. PROCEDURE PERFORMED: Esophagogastroduodenoscopy with biopsy. PREOPERATIVE DIAGNOSIS: GERD, esophageal dysphagia. ESTIMATED BLOOD LOSS: Minimal. IV sedation per anesthesia. PROCEDURE: After informed consent was obtained, the patient was brought into the endoscopy unit. IV sedation was administered by Anesthesia under continuous monitoring. Initially the Olympus GIF-190 video endoscope was inserted into the mouth. Esophagus intubated without any difficulty. It was gradually advanced into the stomach and duodenum and carefully examined. The bulb and the second part of the duodenum appeared normal, with biopsies taken. The scope at this time was withdrawn to the stomach, adequately insufflated with air, and upon careful examination, mucosa of the antrum, body, cardia and the fundus appeared normal, except for some mild punctate erythema in the antrum and body suggestive of mild gastritis with biopsies taken. The scope was then withdrawn into the esophagus. 3 cm hiatal hernia noted. The GE junction was located at 35 cm from the incisors. The esophagus was significant for LA grade B esophagitis in the distal esophagus with biopsies of the distal esophagus taken, as well as the midesophagus in the setting of dysphagia. Patient tolerated the procedure well. IMPRESSION: 1. LA grade B esophagitis, biopsied. 2. Mild gastritis antrum and body, biopsied. 3. Biopsies of the duodenum and midesophagus. 4. Hiatal hernia. RECOMMENDATIONS: The findings of this examination were discussed with the patient and her brother. Okay to resume diet. At this time we'll provide patient with a prescription for increased PPI therapy, omeprazole 20 mg twice daily. Continue Zantac at night. Patient has appointment for follow-up with gastroenterology. Await pathology from biopsies.
[2019-03-11 10:01] VITALS: BP 117/60; RESP 18
== END 2019-03-11 09:30 | disposition home or self-care (01) ==
LOC: ORWHC2ENDO 07:25
PROVIDERS: ATTEND Internal Medicine
DX: K29.50 Unspecified chronic gastritis without bleeding (principal); K20.0 Eosinophilic esophagitis; K44.9 Diaphragmatic hernia without obstruction or gangrene; E11.9 Type 2 diabetes mellitus without complications; Z79.4 Long term (current) use of insulin; Z96.41 Presence of insulin pump (external) (internal); Z79.899 Other long term (current) drug therapy; Z88.0 Allergy status to penicillin; Z88.2 Allergy status to sulfonamides
CPT/HCPCS: 88305; 43239; J2001; J2704

== ENCOUNTER → 2019-04-05 | Outpatient (CLI) | payer BC ==
[2019-04-05 18:06] LABS: Hemoglobin A1C 6.9 % (4.0-6.0)
== END | disposition home or self-care (01) ==
LOC: LABWHC1 08:41
PROVIDERS: ATTEND Internal Medicine
DX: E10.65 Type 1 diabetes mellitus with hyperglycemia (principal)
CPT/HCPCS: 36415; 82043; 82570; 83036

== ENCOUNTER → 2019-08-30 | Outpatient (CLI) | payer BC ==
[2019-08-30 16:44] LABS: Chol/HDL Ratio 2.55; LDL Cholesterol,Calculated 109.6 mg/dL (0.0-131.0); VLDL Calculation 11.4 mg/dL (5.00-40.00)
[2019-08-30 16:53] LABS: Urine Creatinine 82.1 mg/dL
[2019-08-30 17:59] LABS: Hemoglobin A1C 7.3 % (4.0-6.0)
== END | disposition home or self-care (01) ==
LOC: LABWHC1 08:43
PROVIDERS: ATTEND Internal Medicine
DX: E10.65 Type 1 diabetes mellitus with hyperglycemia (principal)
CPT/HCPCS: 36415; 80061; 82043; 82570; 83036

== ENCOUNTER → 2019-08-30 | Outpatient (CLI) | payer BC ==
[2019-08-30 09:56] LABS: Basophils # (A) 0.1 k/uL (0-0.2); Basophils % (A) 1 %; Eosinophils # (A) 0.2 k/uL (0-0.7); Eosinophils % (A) 5 %; HCT 41.6 % (34.0-46.0); HGB 13.2 gm/dL (11.4-16.0); Lymphocytes # (A) 1.5 k/uL (1.0-4.8); Lymphocytes % (A) 33 %; MCH 27.3 pg (25.0-35.0); MCHC 31.7 g/dL (31.0-37.0); MCV 86.1 fL (80.0-100.0); Mean Platelet Volume 9.3; Monocytes # (A) 0.2 k/uL (0-1.0); Monocytes % (A) 5 %; Neutrophils # (A) 2.5 k/uL (1.3-7.7); Neutrophils % (A) 55 %; Platelet Count 199 k/uL (150-450); RBC 4.83 m/uL (3.80-5.40); RDW 13.4 % (11.5-15.5); WBC 4.6 k/uL (3.8-10.6)
[2019-08-30 16:44] LABS: African American GFR (CKD) 95.5 (60.0-200.0); Albumin 3.9 g/dL (3.80-4.90); Albumin/Globulin Ratio 1.95 (1.60-3.17); Anion Gap 8.4 mmol/L (4.00-12.00); BUN/Creat Ratio 18.75 Ratio (12.00-20.00); Carbon Dioxide 27.6 mmol/L (21.6-31.8); Non-African American GFR(CKD) 82.4 (60.0-200.0); Potassium 4.9 mmol/L (3.5-5.5); Total Bilirubin 0.7 mg/dL (0.2-1.2); Total Protein 5.9 g/dL (6.2-8.2)
[2019-08-30 16:46] LABS: Magnesium 1.8 mg/dL (1.5-2.4)
== END | disposition home or self-care (01) ==
LOC: LABWHC1 08:46
PROVIDERS: ATTEND Internal Medicine
DX: K21.9 Gastro-esophageal reflux disease without esophagitis (principal)
CPT/HCPCS: 36415; 80053; 82306; 83735; 85025

== ENCOUNTER → 2019-09-05 | Outpatient (CLI) | payer BC ==
--- NOTE | 2019-09-05 13:30 | NM ---
EXAMINATION TYPE: NM bone 3 phase DATE OF EXAM: 09/05/2019 COMPARISON: Plain film from outside institution HISTORY: Left ankle pain Triple phase bone scintigraphy was performed following the injection of 24.5 mCi Tc 99m MDP. Immedia te images and 5.25 hours post injection images acquired over the feet and ankles. FINDINGS: Mild uptake present within the feet to include the mid feet as well as the right metatarsop halangeal joint. Some mild uptake present on blood pool imaging at the level of the left ankle latera lly, delayed uptake is focal at this level and there is questionable uptake noted on blood flow at th is level. There is no significant abnormal accumulation of radiotracer to suggest metastatic disease to the bon e or other significant abnormality. IMPRESSION: Findings could possibly represent osteomyelitis at the level of the lateral malleolus.
== END | disposition home or self-care (01) ==
LOC: RADNMMAIN 07:13
PROVIDERS: ATTEND Podiatrist Foot & Ankle Surgery
DX: M86.172 Other acute osteomyelitis, left ankle and foot (principal)
CPT/HCPCS: 78315; A9503

== ENCOUNTER → 2020-01-05 | Outpatient (CLI) | payer BC ==
--- NOTE | 2020-01-05 12:57 | US ---
EXAMINATION TYPE: US venous doppler duplex LE RT DATE OF EXAM: 01/05/2020 12:43 PM COMPARISON: NONE CLINICAL HISTORY: M25.571 PAIN RT ANKLE,S93.401D SPRAIN. Patient fell and sprained ankle 12/27/19. Pain right calf SIDE PERFORMED: right TECHNIQUE: The lower extremity deep venous system is examined utilizing real time linear array sonog radha with graded compression, doppler sonography and color-flow sonography. VESSELS IMAGED: External Iliac Vein (EIV) Common Femoral Vein Deep Femoral Vein Greater Saphenous Vein * Femoral Vein Popliteal Vein Small Saphenous Vein * Proximal Calf Veins (* superficial vessels) Right Leg: No evidence of DVT IMPRESSION: No evidence for DVT.
== END | disposition home or self-care (01) ==
LOC: RADUSWWP 12:21
PROVIDERS: ATTEND Orthopaedic Surgery
DX: M25.571 Pain in right ankle and joints of right foot (principal); S93.401D Sprain of unspecified ligament of right ankle, subsequent encounter; I80.9 Phlebitis and thrombophlebitis of unspecified site

== ENCOUNTER → 2020-06-15 | Outpatient (CLI) | payer BC ==
--- NOTE | 2020-06-16 11:48 | MM ---
Reason for exam: screening (asymptomatic). Last mammogram was performed 1 year and 5 months ago. History: Patient is postmenopausal and is nulliparous. Physical Findings: A clinical breast exam by your physician is recommended on an annual basis and results should be correlated with mammographic findings. MG Screening Mammo w CAD Bilateral CC, MLO, and XCCL view(s) were taken. Prior study comparison: January 02, 2019, bilateral MG screening mammo w CAD. November 12, 2017, bilateral MG screening mammo w CAD. The breast tissue is heterogeneously dense. This may lower the sensitivity of mammography. Stable benign calcifications. There is no discrete abnormality. No significant changes when compared with prior studies. ASSESSMENT: Benign, BI-RAD 2 RECOMMENDATION: Routine screening mammogram of both breasts in 1 year.
== END | disposition home or self-care (01) ==
LOC: RADMAMWWP 15:42
PROVIDERS: ATTEND Family Medicine
DX: Z12.31 Encounter for screening mammogram for malignant neoplasm of breast (principal)
CPT/HCPCS: 77067

== ENCOUNTER → 2021-05-30 | Outpatient (CLI) | payer BC ==
--- NOTE | 2021-05-30 07:45 | CT ---
EXAMINATION TYPE: CT brain wo con DATE OF EXAM: 05/30/2021 COMPARISON: 04/06/2017 HISTORY: Headache CT DLP: [address] of the brain was performed. The ventricles, basal cisterns and sulci overlying the cerebral convexities demonstrate mild enlargem ent. There is no evidence for intracranial hemorrhage or sulcal effacement. There is decreased attenuation about the periventricular white matter and deep white matter of both c erebral hemispheres, compatible with chronic small vessel ischemia. Differential diagnosis does inclu de demyelination. No mass effects are seen.No midline shift. Osseous calvarium is intact. If symptoms persist consider MRI. IMPRESSION: 1. Age related atrophic and chronic small vessel ischemic change without acute intracranial process s een at this time.
== END | disposition home or self-care (01) ==
LOC: RADCTMAIN 07:21
PROVIDERS: ATTEND Family Medicine
DX: R51.9 Headache, unspecified (principal)
CPT/HCPCS: 70450

== ENCOUNTER → 2021-07-18 | Outpatient (CLI) | payer BC ==
--- NOTE | 2021-07-19 09:58 | MM ---
Reason for exam: screening (asymptomatic). Last mammogram was performed 1 year and 1 month ago. History: Patient is postmenopausal and is nulliparous. Physical Findings: A clinical breast exam by your physician is recommended on an annual basis and results should be correlated with mammographic findings. MG Screening Mammo w CAD Bilateral CC and MLO view(s) were taken. Prior study comparison: June 15, 2020, bilateral MG screening mammo w CAD. January 02, 2019, bilateral MG screening mammo w CAD. The breast tissue is heterogeneously dense. This may lower the sensitivity of mammography. There is no discrete abnormality. No significant changes when compared with prior studies. ASSESSMENT: Negative, BI-RAD 1 RECOMMENDATION: Routine screening mammogram of both breasts in 1 year.
== END | disposition home or self-care (01) ==
LOC: RADMAMWWP 15:14
PROVIDERS: ATTEND Family Medicine
DX: Z12.31 Encounter for screening mammogram for malignant neoplasm of breast (principal); Z78.0 Asymptomatic menopausal state
CPT/HCPCS: 77067

== ENCOUNTER → 2022-09-15 | Outpatient (CLI) | payer BC ==
--- NOTE | 2022-09-15 08:10 | MM ---
Reason for Exam: Screening (asymptomatic). Last mammogram was performed 1 year(s) and 2 month(s) ago. Patient History: Menarche at age 16. Patient has no children. Postmenopausal. Risk Values: [place] 5 year model risk: 1.5%. NCI Lifetime model risk: 7.4%. Prior Study Comparison: 01/02/2019 Bilateral Screening Mammogram, [facility]. 06/15/2020 Bilateral Screening Mammogram, [facility]. 07/18/2021 Bilateral Screening Mammogram, [facility]. Tissue Density: There are scattered fibroglandular densities. Findings: Analyzed By CAD. There is no suspicious group of microcalcifications or new suspicious mass in either breast. Overall Assessment: Benign, BI-RAD 2 Management: Screening Mammogram of both breasts in 1 year. A clinical breast exam by your physician is recommended on an annual basis and results should be correlated with mammographic findings. Electronically signed and approved by: Grayson Stone M.D. Radiologis
== END | disposition home or self-care (01) ==
LOC: RADMAMWWP 06:58
PROVIDERS: ATTEND Family Medicine
DX: Z12.31 Encounter for screening mammogram for malignant neoplasm of breast (principal); Z78.0 Asymptomatic menopausal state
CPT/HCPCS: 77067

== ENCOUNTER 2023-08-11 11:18 | Emergency (ER) | payer BC ==
--- NOTE | 2023-08-11 13:11 | ED ---
Abdominal Pain HPI - General Source: patient, RN notes reviewed, old records reviewed Mode of arrival: ambulatory Limitations: no limitations <Augustine Anderson - Last Filed: 08/11/23 13:09> <Zack Harris - Last Filed: 08/11/23 16:48> - General Chief Complaint: Abdominal Pain Stated Complaint: abd/back pain - History of Present Illness Initial Comments: This is a 62 female to the ED co abdominal pain, sent from [facility] for a pulled muscle per the patient but there is concern for GB issue. (Augustine Anderson) 62-year-old female presents to the emergency room for a chief complaint of abdominal pain radiating around to her right side. Patient states that this started yesterday. She also been nauseous. She notes that every time she eats she gets nauseous. Pain seems to be exacerbated with movement. Starts in the middle of the upper belly and then radiates around to the right side. Described as a sharp pain.Patient has no other complaints at this time including shortness of breath, chest pain, headache, or visual changes. (Zack Harris) - Related Data Home Medications Medication Instructions Recorded Confirmed Cholecalciferol [Vitamin D3] 1,000 unit PO MO 04/06/17 03/11/19 INSULIN LISPRO (For Pump) [humaLOG See Protocol SQ-PUMP CONTINUOUS 04/06/17 03/11/19 (For Pump)] Omeprazole 20 mg PO DAILY 03/07/19 03/11/19 Allergies Allergy/AdvReac Type Severity Reaction Status Date / Time amoxicillin Allergy Rash/Hives Verified 08/11/23 11:29 Sulfa (Sulfonamide Allergy Rash/Hives Verified 08/11/23 11:29 Antibiotics) Review of Systems ROS Other: All systems not noted in ROS Statement are negative. <Augustine Anderson - Last Filed: 08/11/23 13:09> ROS Other: All systems not noted in ROS Statement are negative. <Zack Harris - Last Filed: 08/11/23 16:48> ROS Statement: Those systems with pertinent positive or pertinent negative responses have been documented in the HPI. Past Medical History Past Medical History: Diabetes Mellitus, GERD/Reflux History of Any Multi-Drug Resistant Organisms: MRSA Date of last positivie culture/infection: 2005 MDRO Source:: left thigh Past Surgical History: Appendectomy Additional Past Surgical History / Comment(s): colonoscopy Past Anesthesia/Blood Transfusion Reactions: No Reported Reaction Past Psychological History: Depression Smoking Status: Never smoker Past Alcohol Use History: Occasional Past Drug Use History: None Reported - Past Family History Father Family Medical History: Cancer Additional Family Medical History / Comment(s): leukemia <Augustine Anderson - Filed: 08/11/23 13:09> General Exam Limitations: no limitations General appearance: alert, in no apparent distress Head exam: Present: atraumatic, normocephalic, normal inspection Eye exam: Present: normal appearance, PERRL, EOMI. Absent: scleral icterus, conjunctival injection, periorbital swelling ENT exam: Present: normal exam, mucous membranes moist Neck exam: Present: normal inspection. Absent: tenderness, meningismus, lymphadenopathy Respiratory exam: Present: normal lung sounds bilaterally. Absent: respiratory distress, wheezes, rales, rhonchi, stridor Cardiovascular Exam: Present: regular rate, normal rhythm, normal heart sounds. Absent: systolic murmur, diastolic murmur, rubs, gallop, clicks GI/Abdominal exam: Present: soft, normal bowel sounds. Absent: distended, ten derness, guarding, rebound, rigid Extremities exam: Present: normal inspection, full ROM, normal capillary refill. Absent: tenderness, pedal edema, joint swelling, calf tenderness Back exam: Present: normal inspection Neurological exam: Present: alert, oriented X3, CN II-XII intact Psychiatric exam: Present: normal affect, normal mood Skin exam: Present: warm, dry, intact, normal color. Absent: rash <Augustine Anderson - Last Filed: 08/11/23 13:09> General appearance: alert, in no apparent distress Head exam: Present: atraumatic Eye exam: Present: normal appearance, PERRL, EOMI ENT exam: Present: normal exam, mucous membranes moist Neck exam: Present: normal inspection. Absent: tenderness Respiratory exam: Present: normal lung sounds bilaterally. Absent: respiratory distress, wheezes Cardiovascular Exam: Present: regular rate, normal rhythm, normal heart sounds GI/Abdominal exam: Present: soft, tenderness (Epigastric and right upper quadrant tenderness. Positive Spangler sign.), normal bowel sounds. Absent: distended, guarding, rebound Back exam: Absent: CVA tenderness (R), CVA tenderness (L) Neurological exam: Present: alert <Zack Harris - Last Filed: 08/11/23 16:48> Course <Augustine Anderson - Last Filed: 08/11/23 13:09> Vital Signs 08/11/23 08/11/23 11:26 15:41 Temperature 97.8 F Pulse Rate 63 58 L Respiratory 20 18 Rate Blood Pressure 134/78 132/66 O2 Sat by Pulse 99 100 Oximetry - Reevaluation(s) Reevaluation #1: 08/11/23 13:[address] Anderson completed (Augustine Anderson) Medical Decision Making - Lab Data Result diagrams: 08/11/23 14:28 08/11/23 14:28 <Zack Harris - Last Filed: 08/11/23 16:48> - Medical Decision Making Was pt. sent in by a medical professional or institution (, PA, MIDDLE SCHOOL COMBINATION TEACHER, urgent care, hospital, or jail...) When possible be specific @ -Urgent care Did you speak to anyone other than the patient for history (EMS, parent, family, police, friend...)? What history was obtained from this source @ -[No] Did you review nursing and triage notes (agree or disagree)? Why? @ -[I reviewed and agree with nursing and triage notes] Were old charts reviewed (outside hosp., previous admission, EMS record, old EKG, old radiological studies, urgent care reports/EKG's, jail records)? Report findings @ -[No old charts were reviewed] Differential Diagnosis (chest pain, altered mental status, abdominal pain women, abdominal pain men, vaginal bleeding, weakness, fever, dyspnea, syncope, headache, dizziness, GI bleed, back pain, seizure, CVA, palpatations, mental health)? @ -Differential Abdominal Pain Women: Appendicitis, Cholecystitis, diverticulosis, ischemic bowel, pancreatitis, hepatitis, UTI, gastroenteritis, AAA, incarcerated hernia, bowel obstruction, constipation, inflammatory bowel, hepatitis, peptic ulcer disease, splenic inf arction, perforated viscus, vulvitis, ovarian torsion, PID, kidney stone, placenta abruption, this is not meant to be an all-inclusive list EKG interpreted by me (3pts min.). @ -None done X-rays interpreted by me (1pt min.). @ -Chest x-ray shows no acute process CT interpreted by me (1pt min.). @ -[None done] U/S interpreted by me (1pt. min.). @ -Gallbladder ultrasound without stones or infection What testing was considered but not performed or refused? (CT, X-rays, U/S, labs)? Why? @ -[None] What meds were considered but not given or refused? Why? @ -[None] Did you discuss the management of the patient with other professionals (professionals i.e. , PA, [employer]CHO[employer] COM[employer]ATION TEACHER, lab, RT, psych nurse, psychologist social, cigarette maker, teacher, guest services officer, case packer and sealer)? Give summary @ -[No] Was smoking cessation discussed for >3mins.? @ -[No] Was critical care preformed (if so, how long)? @ -[No] Were there social determinants of health that impacted care today? How? (Homelessness, low income, unemployed, alcoholism, drug addiction, transportation, low edu. Level, literacy, decrease access to med. care, fci, rehab)? @ -[No] Was there de-escalation of care discussed even if they declined (Discuss DNR or withdrawal of care, Hospice)? DNR status @ -[No] What co-morbidities impacted this encounter? (DM, HTN, Smoking, COPD, CAD, Cancer, CVA, ARF, Chemo, Hep., AIDS, mental health diagnosis, sleep apnea, morbid obesity)? @ -[None] Was patient admitted / discharged? Hospital course, mention meds given and route, prescriptions, significant lab abnormalities, going to OR and other pertinent info. @ -62-year-old female presents to the emergency room and is evaluated at bedside for right abdominal pain. Patient was seen as advanced triage protocol and orders were placed. Pain is reproducible with movement. Patient has increased pain when trying to sit into bed. She feels it is more muscular. CBC CMP unremarkable. Urinalysis generally unremarkable. No significant blood or white cells. Chest x-ray and gallbladder ultrasound negative. Patient reevaluated and is doing well. She is requesting discharge home. She was instructed to follow up with primary care and return for any worsening symptoms. Undiagnosed new problem with uncertain prognosis? @ -[No] Drug Therapy requiring intensive monitoring for toxicity (Heparin, Nitro, Insulin, Cardizem)? @ -[No] Were any procedures done? @ -[No] Diagnosis/symptom? @ -Right abdominal pain, muscle strain Acute, or Chronic, or Acute on Chronic? @ -Acute Uncomplicated (without systemic symptoms) or Complicated (systemic symptoms)? @ -Uncomplicated Side effects of treatment? @ -[No] Exacerbation, Progression, or Severe Exacerbation? @ -[No] Poses a threat to life or bodily function? How? (Chest pain, [place], HI, pneumonia, PE, COPD, DKA, ARF, appy, cholecystitis, CVA, Diverticulitis, Homicidal, Suicidal, threat to staff... and all critical care pts) @ -[No] (Zack Harris) - Lab Data Lab Results 08/11/23 08/11/23 08/11/23 Range/Units 14:28 14:28 14:28 WBC 6.9 (3.8-10.6) k/uL RBC 4.86 (3.80-5.40) m/uL Hgb 13.4 (11.4-16.0) gm/dL Hct 41.8 (34.0-46.0) % MCV 86.1 (80.0-100.0) fL MCH 27.6 (25.0-35.0) pg MCHC 32.0 (31.0-37.0) g/dL RDW 14.1 (11.5-15.5) % Plt Count 184 (150-450) k/uL MPV 11.0 Neutrophils % 59 % Lymphocytes % 31 % Monocytes % 5 % Eosinophils % 2 % Basophils % 1 % Neutrophils # 4.1 (1.3-7.7) k/uL Lymphocytes # 2.1 (1.0-4.8) k/uL Monocytes # 0.4 (0-1.0) k/uL Eosinophils # 0.2 (0-0.7) k/uL Basophils # 0.1 (0-0.2) k/uL Sodium 140 (137-145) mmol/L Potassium 5.4 H (3.5-5.1) mmol/L Chloride 108 H (98-107) mmol/L Carbon Dioxide 28 (22-30) mmol/L Anion Gap 4 mmol/L BUN 18 H (7-17) mg/dL Creatinine 0.61 (0.52-1.04) mg/dL Est GFR (CKD-EPI)AfAm >90 (>60 ml/min/1.73 sqM) Est GFR (CKD-EPI)NonAf >90 (>60 ml/min/1.73 sqM) Glucose 126 H (74-99) mg/dL Calcium 9.7 (8.4-10.2) mg/dL Total Bilirubin 0.8 (0.2-1.3) mg/dL AST 34 (14-36) U/L ALT 27 (4-34) U/L Alkaline Phosphatase 97 (38-126) U/L Total Protein 6.9 (6.3-8.2) g/dL Albumin 3.9 (3.5-5.0) g/dL Amylase 67 (30-110) U/L Lipase 73 (23-300) U/L Urine Color Yellow Urine Appearance Cloudy H (Clear) Urine pH 5.5 (5.0-8.0) Ur Specific [place] 1.032 (1.001-1.035) Urine Protein Trace H (Negative) Urine Glucose (UA) 3+ H (Negative) Urine Ketones Negative (Negative) Urine Blood Negative (Negative) Urine Nitrite Negative (Negative) Urine Bilirubin Negative (Negative) Urine Urobilinogen 2.0 (<2.0) mg/dL Ur Leukocyte Esterase Trace H (Negative) Urine RBC 3 (0-5) /hpf Urine WBC 2 (0-5) /hpf Ur Squamous Epith Cells 9 H (0-4) /hpf Calcium Oxalate Crystal Many H (None) /hpf Urine Bacteria Rare H (None) /hpf Urine Mucus Few H (None) /hpf Disposition <Augustine Anderson - Last Filed: 08/11/23 13:09> Is patient prescribed a controlled substance at d/c from ED?: No Time of Disposition: 16:48 <Zack Harris - Last Filed: 08/11/23 16:48> Clinical Impression: Abdominal pain Disposition: HOME SELF-CARE Condition: Good Instructions (If sedation given, give patient instructions): Abdominal Pain (ED) Additional Instructions: Please follow up with primary care in 1-2 days. Return to the emergency room for any worsening symptoms. Referrals: Michael Dias DO [STAFF PHYSICIAN] - 1-2 days
--- NOTE | 2023-08-11 14:23 | US ---
EXAMINATION TYPE: US gallbladder DATE OF EXAM: 08/11/2023 COMPARISON: NONE CLINICAL INDICATION: Female, 62 years old with history of pain; RUQ pain, back pain, nausea TECHNIQUE: Multiple sonographic images of the right upper quadrant are obtained. FINDINGS: EXAM MEASUREMENTS: Liver Length: 16.0 cm Gallbladder Wall: 0.2 cm CBD: 0.5 cm Right Kidney: 11.0 x 5.1 x 4.4 cm DIE SINKER APPRENTICE NOTES: *Technical limitations due to patient's body habitus and large amount of overlying bowel gas Pancreas: Obscured by bowel gas Liver: visualized portions appear wnl Gallbladder: no evidence of stones as visualized Evidence for sonographic Spangler's sign: no CBD: limited evaluation, appears wnl Right Kidney: limited evaluation, no evidence of hydronephrosis IMPRESSION: No evidence for acute process. No obstructive uropathy.
[2023-08-11] MEDS: KETOROLAC 15 MG/ML 1 ML VIAL IVP STA (15:08)
--- NOTE | 2023-08-11 15:09 | XR ---
EXAMINATION TYPE: XR chest 2V DATE OF EXAM: 08/11/2023 2:58 PM CLINICAL INDICATION:Female, 62 years old with history of pain; PHH COMPARISON: Chest radiographs from 06/20/2011 TECHNIQUE: XR chest 2V Frontal and lateral views of the chest. FINDINGS: Lungs/Pleura: There is no evidence of pleural effusion, focal consolidation, or pneumothorax. Pulmonary vascularity: Unremarkable. Heart/mediastinum: Cardiomediastinal silhouette is unremarkable. Musculoskeletal: No acute osseous pathology. IMPRESSION: No acute cardiopulmonary disease/process.
[2023-08-11 15:25] LABS: Basophils # (A) 0.1 k/uL (0-0.2); Basophils % (A) 1 %; Eosinophils # (A) 0.2 k/uL (0-0.7); Eosinophils % (A) 2 %; HCT 41.8 % (34.0-46.0); HGB 13.4 gm/dL (11.4-16.0); Lymphocytes # (A) 2.1 k/uL (1.0-4.8); Lymphocytes % (A) 31 %; MCH 27.6 pg (25.0-35.0); MCV 86.1 fL (80.0-100.0); Monocytes # (A) 0.4 k/uL (0-1.0); Monocytes % (A) 5 %; Neutrophils # (A) 4.1 k/uL (1.3-7.7); Neutrophils % (A) 59 %; Platelet Count 184 k/uL (150-450); RBC 4.86 m/uL (3.80-5.40); RDW 14.1 % (11.5-15.5); WBC 6.9 k/uL (3.8-10.6)
[2023-08-11 15:34] LABS: Appearance,Urine Cloudy (Clear); Bacteria,Urine Rare /hpf; Bilirubin,Urine Negative (Negative); Blood,Urine Negative (Negative); Calcium Oxalate Crystals,Urine Many /hpf; Color,Urine Yellow; Glucose,Urine (UA) 3+ (Negative); Ketones,Urine Negative (Negative); Leukocyte Esterase,Urine Trace (Negative); Mucus,Urine Few /hpf; Nitrite,Urine Negative (Negative); PH, Urine 5.5 (5.0-8.0); Protein,Urine Trace (Negative); RBC,Urine 3 /hpf (0-5); Specific Gravity,Urine 1.032 (1.001-1.035); Squamous Epithelial Cell,Urine 9 /hpf (0-4); WBC,Urine 2 /hpf (0-5)
[2023-08-11 15:45] LABS: ALT 27 U/L (4-34); AST 34 U/L (14-36); African American GFR (CKD) >90 (>60 ml/min/1.73 sqM); Albumin 3.9 g/dL (3.5-5.0); Alkaline Phosphatase 97 U/L (38-126); Amylase 67 U/L (30-110); Anion Gap 4 mmol/L; Blood Urea Nitrogen 18 mg/dL (7-17); Calcium 9.7 mg/dL (8.4-10.2); Carbon Dioxide 28 mmol/L (22-30); Chloride 108 mmol/L (98-107); Glucose 126 mg/dL (74-99); Lipase 73 U/L (23-300); Non-African American GFR(CKD) >90 (>60 ml/min/1.73 sqM); Sodium 140 mmol/L (137-145); Total Bilirubin 0.8 mg/dL (0.2-1.3); Total Protein 6.9 g/dL (6.3-8.2)
[2023-08-11 15:49] LABS: Potassium 5.4 mmol/L (3.5-5.1)
[2023-08-11 16:04] VITALS: RESP 18
[2023-08-11 17:25] VITALS: BP 127/70; PULSE 60; TEMP 97.9
== END 2023-08-11 17:01 | disposition home or self-care (01) ==
LOC: EC 11:18
DX: S39.011A Strain of muscle, fascia and tendon of abdomen, initial encounter (principal); E11.9 Type 2 diabetes mellitus without complications; K21.9 Gastro-esophageal reflux disease without esophagitis; Z79.4 Long term (current) use of insulin; Z79.899 Other long term (current) drug therapy; Z88.0 Allergy status to penicillin; Z88.2 Allergy status to sulfonamides; Z90.49 Acquired absence of other specified parts of digestive tract; X58.XXXA Exposure to other specified factors, initial encounter
CPT/HCPCS: 36415; 80053; 82150; 83690; 85025; 81001; 71046; 76705; 99284; 96374; J1885

== ENCOUNTER → 2023-09-18 | Outpatient (CLI) | payer BC ==
--- NOTE | 2023-09-21 18:31 | MM ---
Reason for Exam: Screening (asymptomatic). Last screening mammogram was performed 12 month(s) ago. Patient History: Menarche at age 16. Patient has no children. Postmenopausal. Risk Values: [place] 5 year model risk: 1.5%. NCI Lifetime model risk: 7.2%. Prior Study Comparison: 06/15/2020 Bilateral Screening Mammogram, [facility]. 07/18/2021 Bilateral Screening Mammogram, [facility]. 09/15/2022 Bilateral MG screening mammo w CAD, [facility]. Tissue Density: The breasts are heterogeneously dense, which may obscure small masses. Findings: Analyzed By CAD. The pattern is symmetrical. Findings cervical calcifications are within the right breast. Benign coarse calcifications within the left breast. No significant interval changes are evident No suspicious groups of microcalcifications, spiculated or lobular masses, architectural distortion or other secondary signs of malignancy are mammographically apparent. Overall Assessment: Benign, BI-RAD 2 Management: Screening Mammogram of both breasts in 1 year. A negative mammogram report should not preclude additional follow up of suspicious palpable abnormalities. Patient should continue monthly self breast exam. A clinical breast exam by your physician is recommended on an annual basis and results should be correlated with mammographic findings. Electronically signed and approved by: Peter Castro D.O. Radiologis
== END | disposition home or self-care (01) ==
LOC: RADMAMWWP 15:16
PROVIDERS: ATTEND Family Medicine
DX: Z12.31 Encounter for screening mammogram for malignant neoplasm of breast (principal); Z78.0 Asymptomatic menopausal state
CPT/HCPCS: 77067

== ENCOUNTER → 2023-09-19 | Outpatient (CLI) | payer BC ==
--- NOTE | 2023-09-19 16:57 | MR ---
EXAMINATION TYPE: MR lumbar spine wo con DATE OF EXAM: 09/19/2023 4:47 PM CLINICAL INDICATION:Female, 63 years old with history of M47.816; PHH, Right side low back pain COMPARISON: None TECHNIQUE: Multi planar, multi sequence imaging was performed utilizing: T1-weighted, T2-weighted, a nd turbo inversion recovery imaging of the lumbar spine. IV Contrast: cc . (None if empty) FINDINGS: Alignment: Compression deformity of the T12 vertebrae with 50% height loss anteriorly. Mild retropuls ion up to 3 mm. No abnormal bony edema. Cord: The conus medullaris and the distal spinal cord appear unremarkable with regards to their signa l intensity and morphology. Bones/Discs: Compression deformity of the T12 vertebrae with 50% height loss anteriorly. Mild retropu lsion up to 3 mm. No abnormal bony edema. Mild degeneration changes throughout the spine with osteoph yte formation and facet joint arthropathy. Intervertebral disc signal is maintained. T12-L1: No evidence of significant spinal canal stenosis or neural foraminal stenosis. L1-L2: No evidence of significant spinal canal stenosis or neural foraminal stenosis. L2-L3: No evidence of significant spinal canal stenosis. Facet joint arthropathy mild bilateral neura l foraminal stenosis. L3-L4: No evidence of significant spinal canal stenosis. Facet joint arthropathy mild bilateral neura l foraminal stenosis. L4-L5: Bulging of the posterior disc may be a central protrusion without significant spinal canal dorys nosis series 701 image 6. Facet joint arthropathy mild bilateral neural foraminal stenosis. L5-S1: The disc is rounded posterior morphology without significant spinal canal stenosis. Facet join t arthropathy with mild bilateral neural foraminal stenosis. No significant spinal canal or neural foraminal stenosis in the remainder of the visualized levels. Other findings: None. IMPRESSION: 1. No definitive evidence of significant spinal canal stenosis. 2. There may be a small L4-L5 disc protrusion centrally without significant spinal canal stenosis. 3. Mild to moderate disc degeneration with associated osteoarthritic changes. No evidence for this s ignificant neural foraminal stenosis. 4. Compression deformity of the T12 vertebrae with 50% height loss anteriorly. No acute bony edema.
== END | disposition home or self-care (01) ==
LOC: RADMRIMAIN 15:10
PROVIDERS: ATTEND Orthopaedic Surgery
DX: M47.26 Other spondylosis with radiculopathy, lumbar region (principal); M51.16 Intervertebral disc disorders with radiculopathy, lumbar region; M48.54XA Collapsed vertebra, not elsewhere classified, thoracic region, initial encounter for fracture
CPT/HCPCS: 72148

== ENCOUNTER → 2024-01-28 | Outpatient (CLI) | payer BC | LOC: PNWHC3 13:30 | PROVIDERS: ATTEND Specialist | DX: S22.080A Wedge compression fracture of T11-T12 vertebra, initial encounter for closed fracture (principal); M54.14 Radiculopathy, thoracic region; M43.16 Spondylolisthesis, lumbar region; Z88.0 Allergy status to penicillin; Z88.2 Allergy status to sulfonamides; X58.XXXA Exposure to other specified factors, initial encounter | CPT/HCPCS: 99211 ==

== ENCOUNTER 2024-02-15 11:11 | Day surgery (SDC) | payer BC ==
[2024-02-15] MEDS ORDERED: methylPREDNISolone ACETATE 40 MG/ML 1 ML VIAL ONE (13:00)
[2024-02-15] MEDS ORDERED: IOPAMIDOL M200 10 ML VIAL ONE (13:00)
--- NOTE | 2024-03-25 18:20 | FL ---
EXAMINATION TYPE: FL guided pain mgmt statistic DATE OF EXAM: 02/22/2024 8:57 AM COMPARISON: Pre Operative Images if available both CT/MRI or plain film CLINICAL INDICATION: Female, 63 years old with history of LUMBAR LESI L4-L5; TECHNIQUE: FL guided pain mgmt statistic, multiple fluoroscopic images provided for procedure. Total fluoroscopy time: 4 seconds Total submitted images to PACS: 1 DAP: [id number] mGym2 Gycm2 uGym2 cGycm2 or equivalent. FINDINGS: Fluoroscopic images during injection for pain management demonstrate multilevel degeneration changes throughout the spine. No evidence for fracture. No acute process identified. IMPRESSION: 1. No evidence for intraoperative complication. 2. Please see the operative/procedural note for further details. [facility], , 03/25/2024 6:17 PM
== END 2024-02-15 13:52 ==
LOC: ORPAIN 11:11
PROVIDERS: ATTEND Specialist
DX: M47.26 Other spondylosis with radiculopathy, lumbar region (principal); Z88.0 Allergy status to penicillin; Z88.1 Allergy status to other antibiotic agents; Z88.2 Allergy status to sulfonamides; Z96.41 Presence of insulin pump (external) (internal)
CPT/HCPCS: 62323

== ENCOUNTER → 2024-03-20 | Outpatient (CLI) | payer BC ==
[2024-03-20 14:08] VITALS: BP 174/65; PULSE 63; RESP 16
--- NOTE | 2024-03-20 14:48 | P.PAINPG ---
Objective - Vital Signs Vital signs: Vital Signs Temp Pulse 63 03/20/24 14:00 Resp 16 03/20/24 14:00 BP 174/65 03/20/24 14:00 Pulse Ox 99 03/20/24 14:00 FiO2 Intake & Output 03/19/24 03/20/24 03/20/24 18:59 06:59 18:59 Weight 97.522 kg PQRS Measure Charge Sheet Mode of Arrival: Ambulatory Comment: A 63 yr old female with a history of severe and chronic LBP secondary to radiculopathy, spondylosis with facet arthropathy without myelopathy presents today for evaluation s/p MARLEEN L4-L5 #1. Pt states she experienced 100% pain relief x 1 mo s/p procedure. Pain level is provoked at 1 /10 in intensity, constant, predominantly axial, localized in the lumbar spine, achy in character without shooting pain. Pain has no provocation. Pain is alleviated with PT x 6 wks in Sep 2023, physician guided HEP stretches daily since Sep 2023, ice, medications, repositioning and rest. Interventional pain procedures completed include MARLEEN L4-L5 x1 (Jan 2024) Patient is currently on Tyl Patient denies any side effects of the medication(s), denies excessive drowsiness or sleepiness, denies suicidal ideation and reports that the current pain medication is helping to control the pain and improve activities of daily living. Patient denies any motor or sensory deficits. Patient denies any fever or night sweats, denies any change in the bowel movements or urination. Physical Examination: -Constitutional: Cooperative. Not in acute distress . - Neurologic: Cranial nerve II to XII intact. No focal neurological deficits. - Psychatric: Alert & oriented x 3. Matching mood & appropriate affect. Judgment and insight intact. - Musculoskeletal: Cervical spine: Muscle bulk/ tone/ strength in the bilateral upper extremities normal Vertebral body tenderness to palpation over Spurling test positive Distraction test positive Facet loading test positive TTP Thoracic spine Muscle bulk / tone/ strength in the bilateral paraspinal muscles normal Vertebral body tender to palpation over Facet loading test positive TTP Lumbar spine: Motor bulk/ tone/ strength lower extremities , thigh and legs : 5/5 Deep tendon reflexes : Normal Knee Jerk. Normal Ankle Jerk . Vertebral body tenderness to palpation over Simms Test positive L4-L5 Lumbar Facet Loading Test positive Straight Leg Raise: positive at 30 degrees right side/ left side Gaenslen's Test positive Sacral spine : Severe tenderness over the Sacroiliac joint: right side / left side Range of motion: Flexion of the lumbar spine <60 degrees Range of motion: Extension of the lumbar spine <20 degrees Gaenslen's Test positive right side / left side Logan test: positive right side / left side Thigh Thrust Test positive right side / left side Sacral Thrust Test positive right side / left side Assessment and plan: Chronic LBP secondary to lumbar radiculopathy, spondylosis with facet arthropathy without myelopathy Will manage residual pain and may RTC on an as needed basis. All questions answered. I have spent less than 30 minutes on patient care today. Dr Wolfe was available by phone for the evaluation of this patient. The time was used to review the medical records including relevant urine studies and Prescription history (MAPs), review of the available imaging, evaluation and examination of the patient, coordination of care with the medical staff and if applicable referring physicians, as well as creation of the medical record - Pain Location Bilateral Lower Back Non-Pharmacological Interventions: Physical Therapy Pharmacological Interventions: Epidural PQRS Narrative: Smoking Status Never smoker Blood Pressure 174/65 Pain Intensity [Bilateral 0 Lower Back] Scale Used Numeric (1 - 10) Hx Alcohol Use (MH) No Home Medications: Ambulatory Orders Cholecalciferol [Vitamin D3] 1,000 unit PO MO 04/06/17 INSULIN LISPRO (For Pump) [humaLOG (For Pump)] See Protocol SQ-PUMP CONTINUOUS 04/06/17 Omeprazole 20 mg PO DAILY 03/07/19 Controlled Substance Measures - Controlled Substance Measures Is patient prescribed a controlled substance at discharge?: No
== END ==
LOC: PNWHC3 13:58
PROVIDERS: ATTEND Specialist
DX: M54.16 Radiculopathy, lumbar region
CPT/HCPCS: 99211

== ENCOUNTER 2024-05-19 10:08 | Day surgery (SDC) | payer BC ==
[2024-05-16 09:29] VITALS: BMI 38.0
[~2024-05-19 10:08] MED LIST changes: -LACTATED RINGERS 1,000 ML IV SCH; +LIDOCAINE 1% (10MG/ML) FOR IV START INTRADERMA PRN; -LIDOCAINE 1% 20 ML VIAL (10MG/ML) FOR IV START INTRADERMA PRN
[2024-05-19 10:38] VITALS: RESP 16; TEMP 97.3
[2024-05-19] MEDS: IV FLUID CONTINUATION 1,000 ML IV ONE (10:39)
[2024-05-19] MEDS: LACTATED RINGERS 1,000 ML IV SCH (10:41)
[2024-05-19 10:54] LABS: Glucose,Whole Blood 120 mg/dL (70-110)
[2024-05-19] MEDS ORDERED: PROPOFOL 10 MG/ML 20 ML VIAL IV ONE (12:12)
[2024-05-19] MEDS ORDERED: LIDOCAINE 2% (PF) 20 MG/ML 5 ML VIAL ONE (12:12)
--- NOTE | 2024-05-19 12:21 | P.GSHP ---
History of Present Illness H&P Date: 05/19/24 Chief Complaint: Gerd This a 63-year-old female who presents today for EGD. Patient's complaints of GERD. Past Medical History Past Medical History: Diabetes Mellitus, GERD/Reflux, Hyperlipidemia Additional Past Medical History / Comment(s): DM I History of Any Multi-Drug Resistant Organisms: MRSA Date of last positivie culture/infection: 2013 MDRO Source:: left thigh Past Surgical History: Appendectomy, Orthopedic Surgery Additional Past Surgical History / Comment(s): colonoscopy, Left knee arthoplasty Past Anesthesia/Blood Transfusion Reactions: No Reported Reaction Smoking Status: Never smoker - Past Family History Mother Family Medical History: No Reported History Father Family Medical History: Cancer Additional Family Medical History / Comment(s): leukemia Medications and Allergies Home Medications Medication Instructions Recorded Confirmed Type Cholecalciferol [Vitamin D3] 1,000 unit PO MO 04/06/17 05/19/24 History INSULIN LISPRO (For Pump) [humaLOG See Protocol SQ-PUMP CONTINUOUS 04/06/17 05/19/24 History (For Pump)] Atorvastatin Calcium 20 mg PO DAILY 05/16/24 05/19/24 History Allergies Allergy/AdvReac Type Severity Reaction Status Date / Time amoxicillin Allergy Rash/Hives Verified 05/19/24 10:39 Sulfa (Sulfonamide Allergy Rash/Hives Verified 05/19/24 10:39 Antibiotics) Surgical - Exam Vital Signs Temp Pulse Resp BP Pulse Ox 97.3 F L 61 16 140/60 97 05/19/24 10:37 05/19/24 10:37 05/19/24 10:37 05/19/24 10:37 05/19/24 10:37 - General well developed, well nourished, no distress - Eyes PERRL - ENT normal pinna - Neck no masses - Respiratory normal expansion - Cardiovascular Rhythm: regular - Abdomen Abdomen: soft, non tender Results - Labs Abnormal Lab Results - Last 24 Hours (Table) 05/19/24 Range/Units 10:49 POC Glucose (mg/dL) 120 H (70-110) mg/dL Assessment and Plan Assessment: Gerd. Will perform EGD.
--- NOTE | 2024-05-19 12:33 | P.OP ---
Date of Procedure: 05/19/24 Preoperative Diagnosis: Gerd Postoperative Diagnosis: Antral gastritis Paraesophageal hiatal hernia Esophagitis Procedure(s) Performed: EGD Anesthesia: MAC Surgeon: Anil Zhou Pathology: other (Antrum, esophagus) Condition: stable Disposition: PACU Description of Procedure: The patient is placed on the endoscopy table in the lateral position. She received IV sedation. The gas was placed oropharynx passed in the esophagus and stomach. Scope was in place through the pylorus. The first and second portion of the duodenum appeared normal. Scope was brought back to the antrum this appeared mildly Flaim. A biopsy performed. Scope was then retroflexed and the Mainer of the stomach. Normal. There was a moderate size paraesophageal hiatal hernia. The GE junction was at 37 cm. The distal esophagus pio appeared inflamed. This was biopsied. The proximal esophagus appeared normal. Scope withdrawn for the patient.
[2024-05-19 12:48] VITALS: BP 119/54; PULSE 57
== END 2024-05-19 13:03 | disposition home or self-care (01) ==
LOC: ORWHC2ENDO 10:08
PROVIDERS: ATTEND Surgery
DX: K29.70 Gastritis, unspecified, without bleeding (principal); K31.9 Disease of stomach and duodenum, unspecified; K21.00 Gastro-esophageal reflux disease with esophagitis, without bleeding; K44.9 Diaphragmatic hernia without obstruction or gangrene; E11.9 Type 2 diabetes mellitus without complications; E78.5 Hyperlipidemia, unspecified; R00.2 Palpitations; Z90.49 Acquired absence of other specified parts of digestive tract; Z88.2 Allergy status to sulfonamides; Z88.1 Allergy status to other antibiotic agents; Z88.0 Allergy status to penicillin; Z79.02 Long term (current) use of antithrombotics/antiplatelets; Z79.4 Long term (current) use of insulin; Z79.899 Other long term (current) drug therapy
CPT/HCPCS: 88305; 43239; J2704; J2003

== ENCOUNTER → 2024-05-20 | Outpatient (CLI) | payer BC ==
--- NOTE | 2024-05-20 11:04 | CA ---
Lexiscan Nuclear Stress Test Report Name: Jackie Sneed Exam Date: 05/20/2024 09:42 Exam Location: [facility] Stress Ht (in): 63 Wt (lb): 215 BSA: 1.99 Ordering Phys: Monik Figueredo DO Referring Phys: Selma Carvalho PAC Technologist: Skip Watters Age: 63 Gender: F : 1960 Procedure CPT: Indications: R00.2 palpitations ICD-10 Codes: Patient History: Medications: Meds past 24 hrs: Pretest Chest Pain: STRESS TEST Lexiscan Protocol Exercise Duration (min:sec): 02:[address] Depressions (mm): Angina Score: Thompson Score: Resting HR (bpm): 56 Peak HR (bpm): 86 Resting BP (mmHg): 130 / 55 Peak BP (mmHg): 132 / 55 MPHR: 159 Target HR: 135 % MPHR: 54 METS: 1.0 Total Dose: Peak Dose: Atropine: Double Product: 30284 BP Response: Stress Termination: INFUSION COMPLETE Stress Symptoms: NO SYMPTOMS Stress Summary: ECG ANALYSIS Resting ECG: Sinus rhythm. Normal conduction. No arrhythmias. Normal repolarization. Stress ECG: No ECG changes from baseline with Lexiscan infusion. CONCLUSIONS No ECG evidence of ischemia with Lexiscan infusion. Nuclear test results to follow. Dr. Cassie Carbone MD (Electronically Signed) Final Date: 20 May 2024 11:03
--- NOTE | 2024-05-20 15:07 | NM ---
EXAMINATION TYPE: NM stress lexiscan cardiolite DATE OF EXAM: 05/20/2024 COMPARISON: 06/21/2011 CLINICAL INDICATION: Female, 63 years old with history of R00.2 PALPITATIONS; TECHNIQUE: After the intravenous administration of 9.7 mCi Tc 99m Sestamibi - Cardiolite resting SPE CT images acquired 45 minutes post injection. The patient received 0.4mg Lexiscan, 25.5 mCi Tc 99m Sestamibi - Stress images obtained [address] injection FINDINGS: Review of stress and rest SPECT images demonstrates no distinct perfusion abnormality. Gated analysi s shows normal wall motion with an estimated left ventricular ejection fraction of 65 %. IMPRESSION: No scintigraphic evidence for reversible ischemia. [facility], , 05/20/2024 3:04 PM
== END | disposition home or self-care (01) ==
LOC: RADNMMAIN 07:44
PROVIDERS: ATTEND Family Medicine
DX: R00.2 Palpitations (principal); R07.9 Chest pain, unspecified
CPT/HCPCS: 93017; 78452; A9500

== ENCOUNTER 2024-06-16 07:30 | Inpatient (IN) | payer BC ==
[~2024-06-16 07:30] MED LIST changes: +HYDROmorphone 0.5 MG/0.5 ML SYRINGE IVP PRN; -LIDOCAINE 1% (10MG/ML) FOR IV START INTRADERMA PRN
[2024-06-16] MEDS: IV FLUID CONTINUATION 1,000 ML IV ONE (11:20)
[2024-06-16] MEDS: LACTATED RINGERS 1,000 ML IV SCH (11:20)
[2024-06-16] MEDS: LIDOCAINE 1% (10MG/ML) FOR IV START INTRADERMA PRN (11:20)
[2024-06-16] MEDS: ACETAMINOPHEN TAB 500 MG TAB PO PRN (11:34)
[2024-06-16] MEDS: ONDANSETRON 4 MG/2 ML VIAL IVP ONE (11:35)
[2024-06-16] MEDS: HEPARIN SODIUM,PORCINE 5,000 UNIT/ML 1 ML VIAL SQ PRN (11:35)
[2024-06-16 11:38] LABS: Glucose,Whole Blood 135 mg/dL (70-110)
[2024-06-16 11:53] LABS: ALT 25 U/L (4-34); AST 19 U/L (14-36); African American GFR (CKD) >90 (>60 ml/min/1.73 sqM); Albumin 3.9 g/dL (3.5-5.0); Alkaline Phosphatase 139 U/L (38-126); Anion Gap 7 mmol/L; Blood Urea Nitrogen 17 mg/dL (7-17); Calcium 9.3 mg/dL (8.4-10.2); Carbon Dioxide 26 mmol/L (22-30); Chloride 105 mmol/L (98-107); Glucose 145 mg/dL (74-99); Non-African American GFR(CKD) >90 (>60 ml/min/1.73 sqM); Sodium 138 mmol/L (137-145); Total Bilirubin 0.6 mg/dL (0.2-1.3); Total Protein 6.5 g/dL (6.3-8.2)
[2024-06-16] MEDS ORDERED: ROCURONIUM 10 MG/ML (5 ML VIAL) IV ONE (12:56)
[2024-06-16] MEDS ORDERED: HYDROmorphone (PF) 1 MG/ML ONE (12:56)
[2024-06-16] MEDS ORDERED: fentaNYL (PF) 50 MCG/ML 2 ML AMP ONE (12:56)
[2024-06-16] MEDS ORDERED: MIDAZOLAM 2 MG/2 ML VIAL ONE (12:56)
[2024-06-16] MEDS ORDERED: PROPOFOL 10 MG/ML 20 ML VIAL IV ONE (12:56)
[2024-06-16] MEDS ORDERED: NEOSTIGMINE 1 MG/ML 10 ML VIAL ONE (12:56)
[2024-06-16] MEDS ORDERED: SUCCINYLCHOLINE CHLORIDE 200 MG/10 ML VIAL IV ONE (12:56)
[2024-06-16] MEDS ORDERED: LIDOCAINE 1% INJ 10MG/ML (20 ML MDV) ONE (12:56)
[2024-06-16] MEDS ORDERED: GLYCOPYRROLATE 0.2 MG/ML 2 ML VIAL ONE (12:56)
[2024-06-16] MEDS: LIDOCAINE 1%-EPI 1:100,000 20 ML VIAL SQ ONE (13:23)
--- NOTE | 2024-06-16 14:07 | P.OP ---
Date of Procedure: 06/16/24 Preoperative Diagnosis: Gerd Diaphragmatic hernia Postoperative Diagnosis: Gerd Diaphragmatic hernia Procedure(s) Performed: Laparoscopic Johan formication Anesthesia: KATH Surgeon: Anil Zhou Estimated Blood Loss (ml): 5 Pathology: none sent Condition: stable Disposition: PACU Description of Procedure: R the patient was placed on the operating table in the supine position. The patient received general anesthesia. And was placed in dorsal lithotomy position. The patient was prepped and draped in the usual sterile fashion. The skin incision sites were anesthetized with 1% local Xylocaine. The skin was incised in the left periumbilical area and then using a blade less 5 mm trocar under direct visualization panel cavity was entered. After adequate insufflation the laparoscope was then placed into the peritoneal cavity. Next a 5 mm trochars placed in the right epigastric position. Another 5 millimeter trocar the right lateral position. Another 5 millimeter trocar in the left lateral position a 5 mm trocar is placed in the left epigastric position. And then the initial 5 mm trocar was exchanged for a 10 mm trocar. The left lateral lobe liver was retracted. The hernia was seen. The crural defect was then dissected using the Harmonic scissors device. A 360 crural dissection was performed the esophagus stomach was reduced back into the peritoneal Cavity. The crural defect was then closed using 2-0 Ethibond suture. Next the fundus of the stomach was mobilized using the [place] scissors device. and then a 58- [place] bougie dilator was placed oropharynx passed into the esophagus and stomach the fundal plication wrap was then performed by grasping the fundus posteriorly and bringing it around the esophagus and stomach fundoplication was then performed using 2-0 Ethibond suture. Care was taken that the fundal location rested over top of the intra-abdominal esophagus. There was no injury seen to the stomach or esophagus. The dilator was then withdrawn. The abdomen was irrigated there is no bleeding seen. The trochars were then withdrawn and then skin incision sites were closed using 3-0 Monocryl suture Steri-Strips are applied. Patient thought procedure well and sent to recovery room in stable condition.
[2024-06-16] MEDS ORDERED: ONDANSETRON 4 MG/2 ML VIAL IVP PRN (14:08)
[2024-06-16 14:58] LABS: Glucose,Whole Blood 193 mg/dL (70-110)
[2024-06-16 16:30] LABS: Glucose,Whole Blood 268 mg/dL (70-110)
[2024-06-16] MEDS ORDERED: HYDROmorphone 1 MG/ML 1 ML SYRINGE IM PRN (16:46)
[2024-06-16] MEDS ORDERED: KETOROLAC 15 MG/ML 1 ML VIAL IVP PRN (16:47)
[2024-06-16] MEDS: droPERidol 5 MG/2 ML VIAL IVP ONE (16:52)
[2024-06-16] MEDS: DEXAMETHASONE SOD PHOSPHATE 4 MG/ML 1 ML VIAL IV ONE (16:52)
[2024-06-16] MEDS: HYDROmorphone 1 MG/ML 1 ML SYRINGE IVP PRN (17:12)
[2024-06-16] MEDS: D5-0.45% NACL WITH KCL 20MEQ/L 1,000 ML IV SCH (17:37)
[2024-06-16] MEDS ORDERED: DEXTROSE 50% SYRINGE 50 ML IVP PRN ×2 (18:46)
[2024-06-16 20:22] LABS: Glucose,Whole Blood 320 mg/dL (70-110)
[2024-06-16] MEDS: INSULIN ASPART (NovoLOG) 100 UNIT/ML VIAL SQ SCH (21:00)
[2024-06-17 06:23] LABS: Glucose,Whole Blood 308 mg/dL (70-110)
[2024-06-17 08:39] VITALS: BP 118/62; PULSE 72; RESP 16; TEMP 98.3
[2024-06-17 10:11] VITALS: BMI 38.4
[2024-06-17 11:45] LABS: Glucose,Whole Blood 253 mg/dL (70-110)
--- NOTE | 2024-06-17 14:03 | P.CONS ---
History of Present Illness - Reason for Consult Consult date: 06/17/24 Medical management - History of Present Illness History of present illness; patient is a 63-year-old lady with past medical history significant for GERD who presented to the hospital for elective maddy fundoplasty. Patient underwent recent EGD showing large paraesophageal hiatal hernia. Patient also found to have chronic inflammation of her esophagus. Patient for scheduled for elective nisin fundoplasty, postoperatively internal medicine team were consulted REVIEW OF SYSTEMS: CONSTITUTIONAL: No fever, no malaise, no fatigue. HEENT: No recent visual problems or hearing problems. Denied any sore throat. CARDIOVASCULAR: No chest pain, orthopnea, PND, no palpitations, no syncope. PULMONARY: No shortness of breath, no cough, no hemoptysis. GASTROINTESTINAL: No diarrhea, no nausea, no vomiting, no abdominal pain. NEUROLOGICAL: No headaches, no weakness, no numbness. HEMATOLOGICAL: Denies any bleeding or petechiae. GENITOURINARY: Denies any burning micturition, frequency, or urgency. MUSCULOSKELETAL/RHEUMATOLOGICAL: Denies any joint pain, swelling, or any muscle pain. ENDOCRINE: Denies any polyuria or polydipsia. The rest of the 14-point review of systems is negative. PHYSICAL EXAMINATION: GENERAL: The patient is alert and oriented x3, not in any acute distress. Well developed, well nourished. HEENT: Pupils are round and equally reacting to light. EOMI. No scleral icterus. No conjunctival pallor. Normocephalic, atraumatic. No pharyngeal erythema. No thyromegaly. CARDIOVASCULAR: S1 and S2 present. No murmurs, rubs, or gallops. PULMONARY: Chest is clear to auscultation, no wheezing or crackles. ABDOMEN: Soft, nontender, nondistended, normoactive bowel sounds. No palpable organomegaly. MUSCULOSKELETAL: No joint swelling or deformity. EXTREMITIES: No cyanosis, clubbing, or pedal edema. NEUROLOGICAL: Gross neurological examination did not reveal any focal deficits. SKIN: No rashes. Assessment and plan GERD Paraesophageal hiatal hernia s/p laparoscopic Maddy fundoplasty Monitor vital signs Monitor CBC Monitor CMP Continue pain management per surgery Continue DVT prophylaxis per surgery Advance diet per surgery Labs and medication were reviewed.. Continue same treatment. Continue with symptomatic treatment. Resume home medication. Monitor labs and vitals. DVT and GI prophylaxis. Further recommendations as per clinical course of the patient Dictation was produced using [employer] dictation software. please excuse any grammatical, word or spelling errors. Past Medical History Past Medical History: Diabetes Mellitus, GERD/Reflux, Hyperlipidemia Additional Past Medical History / Comment(s): DM type I; hernia; recent heart monitor showed palpitations, had cardiac workup 3 weeks ago- normal echo & stress test. History of Any Multi-Drug Resistant Organisms: MRSA Year Discovered:: 2005 MDRO Source:: left leg Past Surgical History: Appendectomy, Orthopedic Surgery Additional Past Surgical History / Comment(s): colonoscopy, left knee arthroscopy, EGD Past Anesthesia/Blood Transfusion Reactions: No Reported Reaction Additional Past Anesthesia/Blood Transfusion Reaction / Comm: no hx blood transfusion Past Psychological History: Depression Smoking Status: Never smoker Past Alcohol Use History: Rare Past Drug Use History: None Reported - Past Family History Mother Family Medical History: AFIB, Cancer, CVA/TIA, Diabetes Mellitus Additional Family Medical History / Comment(s): skin ca Father Family Medical History: Cancer Additional Family Medical History / Comment(s): leukemia Medications and Allergies Home Medications Medication Instructions Recorded Confirmed Type Cholecalciferol [Vitamin D3] 1,000 unit PO DAILY 04/06/17 06/12/24 History Atorvastatin Calcium 20 mg PO HS 05/16/24 06/12/24 History Insulin Aspart (For Pump) [NovoLOG 0.01 unit SQ-PUMP CONTINUOUS 06/12/24 06/12/24 History (For Pump)] Acetaminophen Tab [Tylenol] 650 mg PO Q6H #30 tab 06/16/24 Rx Docusate [Colace] 100 mg PO BID #20 capsule 06/16/24 Rx Ibuprofen [Motrin] 600 mg PO Q6HR PRN #40 tab 06/16/24 Rx oxyCODONE HCL [OxyIR] 5 mg PO Q6H PRN 3 Days #10 tab 06/16/24 Rx Allergies Allergy/AdvReac Type Severity Reaction Status Date / Time amoxicillin Allergy Rash/Hives Verified 06/16/24 11:08 Sulfa (Sulfonamide Allergy Rash/Hives Verified 06/16/24 11:08 Antibiotics) Physical Exam Vitals: Vital Signs Temp Pulse Resp BP Pulse Ox 06/17/24 07:20 98.3 F 72 16 118/62 96 06/17/24 01:02 98.2 F 71 17 144/61 97 06/16/24 19:09 97.9 F 62 17 155/67 93 L 06/16/24 15:55 97.9 F 60 16 139/64 94 L 06/16/24 15:51 97.9 F 60 18 142/62 99 06/16/24 15:09 55 L 18 144/65 96 06/16/24 14:54 54 L 16 143/60 94 L 06/16/24 14:39 55 L 16 147/67 94 L 06/16/24 14:24 68 18 162/68 93 L 06/16/24 14:09 97.9 F 77 16 157/68 98 Intake and Output 06/16/24 06/17/24 06/17/24 22:59 06:59 14:59 Other: # Voids 1 3 Weight 98.3 kg 98.3 kg Results CBC & Chem 7: 06/16/24 11:20 Labs: Abnormal Lab Results - Last 24 Hours (Table) 06/16/24 06/16/24 06/16/24 Range/Units 14:56 16:28 20:21 POC Glucose (mg/dL) 193 H 268 H 320 H (70-110) mg/dL 06/17/24 06/17/24 Range/Units 06:21 11:44 POC Glucose (mg/dL) 308 H 253 H (70-110) mg/dL
== END 2024-06-17 13:20 | disposition home or self-care (01) | DRG 328 ==
LOC: 2ORMAIN 10:41 → 4SSUR 15:02
PROVIDERS: ADMIT Surgery; ATTEND Surgery
PROC: 0DV44ZZ Restriction of Esophagogastric Junction, Percutaneous Endoscopic Approach (ICD-10-PCS; principal; 2024-06-16 12:30)
DX: K44.9 Diaphragmatic hernia without obstruction or gangrene (principal); E11.9 Type 2 diabetes mellitus without complications; E78.5 Hyperlipidemia, unspecified; K21.9 Gastro-esophageal reflux disease without esophagitis; Z96.41 Presence of insulin pump (external) (internal); Z79.4 Long term (current) use of insulin; Z79.899 Other long term (current) drug therapy
CPT/HCPCS: 80053

== ENCOUNTER → 2024-12-24 | Outpatient (CLI) | payer BC ==
--- NOTE | 2024-12-24 15:56 | MM ---
Reason for Exam: Screening (asymptomatic). Last mammogram was performed 1 year(s) and 4 month(s) ago. Patient History: Menarche at age 16. Patient has no children. Postmenopausal. Risk Values: Marianna 5 year model risk: 1.5%. NCI Lifetime model risk: 7.0%. Prior Study Comparison: 07/18/2021 Bilateral Screening Mammogram, [facility]. 09/15/2022 Bilateral MG screening mammo w CAD, [facility]. 09/18/2023 Bilateral MG screening mammo w CAD, [facility]. Tissue Density: There are scattered areas of fibroglandular density. Findings: Analyzed By CAD. Bilateral areas of asymmetric density are unchanged. There is no suspicious group of microcalcifications or new suspicious mass in either breast. Overall Assessment: Benign, BI-RAD 2 Management: Screening Mammogram of both breasts in 1 year. Patient should continue monthly self-breast exams. A clinical breast exam by your physician is recommended on an annual basis. This exam should not preclude additional follow-up of suspicious palpable abnormalities. Note on Marianna scores and lifetime risk: 1. A Marianna score greater than 3% is considered moderate risk. If this is the case, consider specialist referral to assess eligibility for a risk reducing agent. 2. If overall lifetime risk for the development of breast cancer is 20% or higher, the patient may qualify for future screening with alternating mammogram and breast MRI. [facility], , 12/24/2024 3:53 PM. Electronically signed and approved by: Norman Rachel M.D. Radiologist
== END | disposition home or self-care (01) ==
LOC: RADMAMWWP 15:35
PROVIDERS: ATTEND Family Medicine
DX: Z12.31 Encounter for screening mammogram for malignant neoplasm of breast (principal); R92.323 Mammographic fibroglandular density, bilateral breasts; Z78.0 Asymptomatic menopausal state
CPT/HCPCS: 77067